=== PATIENT | male | born 1950 | race Caucasian/White ===

== ENCOUNTER → 2022-07-05 23:00 | Outpatient (CLI) | payer MEDICARE, SELFPAY ==
[2022-07-05 20:04] LABS: Alanine Aminotransferase 44 U/L (12-78); Albumin Level 4.2 g/dl (3.5-5.0); Albumin/Globulin Ratio 1.4 (1.1-1.8); Alkaline Phosphatase 87 U/L (38-126); Aspartate Amino Transferase 37 U/L (17-59); Basophils # 0.1 K/mm3 (0-0.2); Basophils % 0.4 % (0.1-2.0); Bilirubin,Total 0.7 mg/dl (0.2-1.3); Blood Urea Nitrogen 26 mg/dl (9-20); Calcium 9.1 mg/dl (8.4-10.2); Carbon Dioxide 28 mmol/L (22.0-30.0); Chloride 104 mmol/L (98-107); Eosinophils # 0.1 K/mm3 (0.0-0.4); Eosinophils % 0.6 % (0.1-12.0); Estimated Glomerular Filt Rate 66 ml/min (>60); GFR (African American) 80 ML/MIN (>60); Globulin 3.1 g/dL (1.3-3.2); Glucose 123 mg/dl (74-100); Hematocrit 52.2 % (42.0-52.0); Lymphocytes # 1.4 K/mm3 (0.7-4.5); Lymphocytes % 7.6 % (10-50); Mean Corpuscular HGB Conc 32.5 g/dL (31.8-35.4); Mean Corpuscular Hemoglobin 28.1 pg (27.0-31.2); Mean Corpuscular Volume 86.4 fl (80-94); Mean Platelet Volume 8.1 fl (7.4-10.4); Monocytes # 0.8 K/mm3 (0.1-1.0); Monocytes % 4.5 % (1.7-9.3); Neutrophils # 15.8 K/mm3 (1.8-7.8); Neutrophils % 86.9 % (37.0-80.0); Platelet Count 288 K/mm3 (142-424); Red Blood Count 6.05 M/mm3 (4.60-6.20); Red Cell Distribution Width 15.6 % (11.5-17.5); Sodium 138 mmol/L (136-145); Total Protein,Serum 7.3 g/dl (6.3-8.2); White Blood Count 18.2 K/mm3 (4.8-10.8)
[2022-07-05 20:06] LABS: MANUAL DIFFERENTIAL MANUAL DIFFERENTIAL (MANUAL DIFF)
[2022-07-05 22:19] LABS: Burr Cells 1+; Eosinophils % 1 % (0-3); Lymphocytes % 21 % (10-50); Monocytes % 4 % (2-9); Neutrophils % 74 % (42-76); Platelet Estimate Normal; Total Cells Counted 100
[2022-07-05 22:20] LABS: Ovalocytes 1+; Tear Drop Cells 1+
== END ==
PROVIDERS: PCP Family Medicine; Visit Provider Family Medicine
DX: R30.0 Dysuria (principal)
CPT/HCPCS: 80053; 85007; 85025; 87086

== ENCOUNTER → 2022-09-16 15:00 | Outpatient (CLI) | payer MEDICARE, SELFPAY | PROVIDERS: PCP Family Medicine; Visit Provider Family Medicine | DX: R39.9 Unspecified symptoms and signs involving the genitourinary system (principal) | CPT/HCPCS: 87086 ==

== ENCOUNTER → 2023-02-14 12:00 | Outpatient (CLI) | payer MEDICARE, SELFPAY ==
[2023-02-14 19:44] LABS: Basophils % 0.3 % (0.1-2.0); Eosinophils # 0.2 K/mm3 (0.0-0.4); Eosinophils % 2.8 % (0.1-12.0); Hematocrit 45.2 % (42.0-52.0); Hemoglobin 14.3 g/dL (14.1-18.0); Lymphocytes # 0.7 K/mm3 (0.7-4.5); Lymphocytes % 9.6 % (10-50); Mean Corpuscular HGB Conc 31.6 g/dL (31.8-35.4); Mean Corpuscular Volume 85.6 fl (80-94); Mean Platelet Volume 8.6 fl (7.4-10.4); Monocytes # 0.5 K/mm3 (0.1-1.0); Monocytes % 7.6 % (1.7-9.3); Neutrophils # 5.6 K/mm3 (1.8-7.8); Neutrophils % 79.7 % (37.0-80.0); Platelet Count 195 K/mm3 (142-424); Red Blood Count 5.28 M/mm3 (4.60-6.20); Red Cell Distribution Width 14.7 % (11.5-17.5)
[2023-02-14 19:53] LABS: Alanine Aminotransferase 23 U/L (12-78); Albumin Level 3.5 g/dl (3.5-5.0); Albumin/Globulin Ratio 1.1 (1.1-1.8); Alkaline Phosphatase 85 U/L (38-126); Anion Gap 12.9 mEq/L (5-15); Aspartate Amino Transferase 37 U/L (17-59); Bilirubin,Total 0.4 mg/dl (0.2-1.3); Blood Urea Nitrogen 21 mg/dl (9-20); Calcium 8.9 mg/dl (8.4-10.2); Carbon Dioxide 30 mmol/L (22.0-30.0); Chloride 96 mmol/L (98-107); Estimated Glomerular Filt Rate 66 ml/min (>60); GFR (African American) 80 ML/MIN (>60); Globulin 3.2 g/dL (1.3-3.2); Glucose 108 mg/dl (74-100); Potassium 3.9 mmoL/L (3.5-5.1); Sodium 135 mmol/L (136-145); Total Protein,Serum 6.7 g/dl (6.3-8.2)
== END ==
PROVIDERS: PCP Family Medicine; Visit Provider Family Medicine
DX: R30.0 Dysuria (principal); M25.551 Pain in right hip; M25.552 Pain in left hip
CPT/HCPCS: 80053; 85025

== ENCOUNTER 2023-02-28 17:11 | Observation (INO) | payer MEDICARE, SELFPAY ==
[2023-02-28] VITALS (11 sets, daily range): BP systolic 99–149; BP diastolic 65–85; PULSE 66–88; RESP 18–21; TEMP 36.9–37.4; O2SAT 94–99; BMI 27.6; BMI 28.7
--- NOTE | 2023-02-28 17:55 | XR_ITS ---
PROCEDURE INFORMATION: Exam: XR Chest Exam date and time: 02/28/2023 6:31 PM Age: 72 years old Clinical indication: Shortness of breath; Additional info: SOA, rales TECHNIQUE: Imaging protocol: Radiologic exam of the chest. Views: 1 view. COMPARISON: No relevant prior studies available. FINDINGS: Lungs: Low lung volumes with diffuse bilateral reticular opacities. Pleural spaces: Normal No pleural effusion. No pneumothorax. Heart/Mediastinum: Normal. No cardiomegaly. Vasculature: Mildly tortuous atherosclerotic thoracic aorta. Bones/joints: Unremarkable. IMPRESSION: Lung volumes with diffuse bilateral pulmonary reticular opacities. Findings could be due to interstitial lung disease, hypersensitivity reaction, or atypical pneumonia.
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
--- NOTE | 2023-02-28 18:03 | ECG_ITS ---
APPROVED REPORT Exam: Resting ECG HR:68 bpm ECG Measurements Heart Rate 68 AXES VA 201 P -1 QRSd 102 QRS -11 QT 389 T 30 QTc 406 Conclusion SINUS RHYTHM POSSIBLE RIGHT VENTRICULAR CONDUCTION DELAY [RSR (QR) IN V1/V2] BORDERLINE ECG UNCONFIRMED REPORT Electronically signed by : Huey Ewing MD 03/01/2023 08:48:17
[2023-02-28 18:09] LABS: Chloride 102 mmol/L (98-107)
[2023-02-28 18:10] LABS: Potassium 4.4 mmoL/L (3.5-5.1); Sodium 138 mmol/L (136-145)
[2023-02-28 18:12] LABS: Alanine Aminotransferase 23 U/L (12-78); Aspartate Amino Transferase 31 U/L (17-59); Blood Urea Nitrogen 17 mg/dl (9-20); Creatinine Clearance Estimated 77 mL/min (50-200); Estimated Glomerular Filt Rate 60 ml/min (>60); GFR (African American) 72 ML/MIN (>60)
[2023-02-28 18:13] LABS: Albumin Level 3.3 g/dl (3.5-5.0); Albumin/Globulin Ratio 0.9 (1.1-1.8); Alkaline Phosphatase 99 U/L (38-126); Anion Gap 9.4 mEq/L (5-15); Basophils % 0.3 % (0.1-2.0); Bilirubin,Total 0.4 mg/dl (0.2-1.3); Calcium 8.6 mg/dl (8.4-10.2); Carbon Dioxide 31 mmol/L (22.0-30.0); Eosinophils # 0.2 K/mm3 (0.0-0.4); Eosinophils % 3.1 % (0.1-12.0); Globulin 3.5 g/dL (1.3-3.2); Glucose 104 mg/dl (74-100); Hematocrit 42.2 % (42.0-52.0); Hemoglobin 13.3 g/dL (14.1-18.0); Lymphocytes # 1.5 K/mm3 (0.7-4.5); Lymphocytes % 21.5 % (10-50); Mean Corpuscular HGB Conc 31.5 g/dL (31.8-35.4); Mean Corpuscular Hemoglobin 27.1 pg (27.0-31.2); Mean Corpuscular Volume 86.2 fl (80-94); Mean Platelet Volume 7.3 fl (7.4-10.4); Monocytes # 0.5 K/mm3 (0.1-1.0); Monocytes % 7.1 % (1.7-9.3); Neutrophils # 4.8 K/mm3 (1.8-7.8); Platelet Count 224 K/mm3 (142-424); Red Cell Distribution Width 15.2 % (11.5-17.5); Total Protein,Serum 6.8 g/dl (6.3-8.2)
[2023-02-28 18:20] LABS: D-Dimer 1.43 ug/mL (0.0-0.5)
[2023-02-28 18:20] LABS: VBG Base Excess 1.4 mmol/L (-2.4-2.3); VBG HCO3 26.5 mmol/L (23-30); VBG Oxygen Saturation 95.1 % (50-70); VBG PCO2 45.7 mmol/L (35-51); VBG PH 7.38 mmol/L (7.31-7.41); VBG PO2 71.5 mmol/L (28-40); VBG Total CO2 27.9 mmol/L (23-27)
[2023-02-28 18:22] LABS: NT Pro Brain Natriuretic Pep. 628 pg/mL (0-125)
[2023-02-28 18:37] LABS: Troponin I < 0.01 ng/ml (0.00-0.034)
--- NOTE | 2023-02-28 18:37 | CT_ITS ---
PROCEDURE INFORMATION: Exam: CTA Chest With Contrast Exam date and time: 02/28/2023 7:04 PM Age: 72 years old Clinical indication: Abnormal findings; Abnormal diagnostic tests; Elevated d-dimer; Additional info: Elevated dimer, high pretest probability, SOA TECHNIQUE: Imaging protocol: Computed tomographic angiography of the chest with contrast. Exam focused on the arteries. 3D rendering (Not supervised by radiologist): MIP and/or 3D reconstructed images were created by the technologist. Radiation optimization: All CT scans at this facility use at least one of these dose optimization techniques: automated exposure control; mA and/or kV adjustment per patient size (includes targeted exams where dose is matched to clinical indication); or iterative reconstruction. Contrast material: ISOVUE 370; Contrast volume: 70 ml; Contrast route: INTRAVENOUS (IV); REPORTING DATA: Count of CT and Cardiac NM exams in prior 12 months: This patient has received 0 known CTs and 0 known cardiac nuclear medicine studies in the 12 months prior to the current study. COMPARISON: CR XR CHEST PORTABLE 02/28/2023 6:31 PM FINDINGS: Limitations: Respiratory motion artifact could obscure small segmental or subsegmental emboli. Pulmonary arteries: Normal. No pulmonary emboli. Aorta: Unremarkable. No aortic aneurysm. No aortic dissection. Other arteries: Moderate atherosclerotic disease without aneurysm. New moderate/severe coronary artery calcification. Lungs: Pulmonary findings are degraded by respiratory motion. Diffuse bilateral reticular opacities in the lungs with areas of traction bronchiectasis. Mild emphysema. Pleural spaces: Unremarkable. No pneumothorax. No pleural effusion. Heart: Unremarkable. No cardiomegaly. No pericardial effusion. Lymph nodes: Scattered subcentimeter mediastinal hilar lymph nodes are probably reactive. Punctate calcified left hilar lymph nodes. Gallbladder and bile ducts: Status post cholecystectomy. Kidneys and ureters: Partially visualized 1.6 cm left renal cyst. Bones/joints: Healing right lateral 5th rib and 9th rib fractures. Mild thoracic spine degenerative changes. Soft tissues: Unremarkable. IMPRESSION: 1. Respiratory motion artifact could obscure small segmental or subsegmental pulmonary emboli. Otherwise no evidence of a pulmonary embolism. 2. Motion artifact degrades images of the lungs. There are diffuse bilateral pulmonary reticular opacities with areas of traction bronchiectasis consistent with pulmonary fibrosis. 3. Moderate/severe coronary artery calcified plaque. 4. Healing right lateral 5th and 9th rib fractures. COMMENTS: 1. Consistent with the [employer]'s Incidental Findings Committee white paper (J Am Angie Radiol 2018): Any incidental renal lesion less than 1 cm or classified as too small to characterize, or any incidental cystic renal lesion characterized as simple-appearing, is likely benign. No follow-up imaging is recommended for these lesions per consensus recommendations based on imaging criteria. 2. In the absence of a history or active diagnosis of lung cancer, it is recommended that this patient with emphysema be evaluated for enrollment in a low dose CT lung cancer screening program.
--- NOTE | 2023-02-28 19:14 | PC.NURSE ---
Rounded on patient; call light within reach of patient
--- NOTE | 2023-02-28 20:10 | PC.NURSE ---
paged Dr. Zuleta for possible admission
--- NOTE | 2023-02-28 20:21 | PC.NURSE ---
notified house about admission to Dr. Zuleta
--- NOTE | 2023-02-28 21:03 | PC.NURSE ---
report called to Victoria MANNING accepting nurse for admission.
--- NOTE | 2023-02-28 21:09 | PC.NURSE ---
Rounded on patient; nothing needed at this time. Call light within reach of patient
[2023-02-28 21:15] LABS: Troponin I < 0.01 ng/ml (0.00-0.034)
--- NOTE | 2023-02-28 21:56 | PC.NURSE ---
Patient arrived to floor via stretcher at 21:19.
[2023-02-28 22:38] LABS: Coronavirus 19, PCR Not Detected (NotDetected); Influenza A, PCR Not Detected (NotDetected); Influenza B, PCR Not Detected (NotDetected)
[2023-02-28 22:39] LABS: Troponin I < 0.01 ng/ml (0.00-0.034)
[2023-03-01] VITALS (9 sets, daily range): BP systolic 141–166; BP diastolic 90–95; PULSE 70–110; RESP 17–20; TEMP 36.3–36.7; O2SAT 93–95
[2023-03-01 01:03] LABS: Troponin I < 0.01 ng/ml (0.00-0.034)
--- NOTE | 2023-03-01 01:42 | PC.WOUNDNOTE ---
stage 2 to coccyx.
--- NOTE | 2023-03-01 05:47 | PC.NURSE ---
pt admitted for pul htn. pt on room air, nsr on monitor. wheezing and rhonchi noted. contacted dr cowart, new order received for guiafenesin and solumedrol and duonebs prn. unable to contact daughter x2 attempts to obtain home medication list
[2023-03-01 06:35] LABS: Chloride 100 mmol/L (98-107); Potassium 4.7 mmoL/L (3.5-5.1); Sodium 138 mmol/L (136-145)
[2023-03-01 06:37] LABS: Blood Urea Nitrogen 15 mg/dl (9-20); Creatinine Clearance Estimated 80 mL/min (50-200); Estimated Glomerular Filt Rate 60 ml/min (>60); GFR (African American) 72 ML/MIN (>60)
[2023-03-01 06:38] LABS: Alanine Aminotransferase 25 U/L (12-78); Albumin Level 3.5 g/dl (3.5-5.0); Alkaline Phosphatase 90 U/L (38-126); Anion Gap 10.7 mEq/L (5-15); Aspartate Amino Transferase 31 U/L (17-59); Bilirubin,Total 0.4 mg/dl (0.2-1.3); Carbon Dioxide 32 mmol/L (22.0-30.0); Globulin 3.5 g/dL (1.3-3.2); Glucose 144 mg/dl (74-100)
[2023-03-01 06:50] LABS: Basophils % 0.1 % (0.1-2.0); Hematocrit 41.5 % (42.0-52.0); Hemoglobin 13.9 g/dL (14.1-18.0); Lymphocytes # 0.5 K/mm3 (0.7-4.5); Lymphocytes % 12.6 % (10-50); Mean Corpuscular HGB Conc 33.5 g/dL (31.8-35.4); Mean Corpuscular Hemoglobin 28.4 pg (27.0-31.2); Mean Corpuscular Volume 84.7 fl (80-94); Mean Platelet Volume 7.7 fl (7.4-10.4); Monocytes # 0.1 K/mm3 (0.1-1.0); Monocytes % 1.9 % (1.7-9.3); Neutrophils # 3.7 K/mm3 (1.8-7.8); Neutrophils % 85.4 % (37.0-80.0); Platelet Count 233 K/mm3 (142-424); Red Cell Distribution Width 16.4 % (11.5-17.5); White Blood Count 4.3 K/mm3 (4.8-10.8)
[2023-03-01 06:58] LABS: MANUAL DIFFERENTIAL MANUAL DIFFERENTIAL (MANUAL DIFF)
--- NOTE | 2023-03-01 07:28 | HMH.PHAINT1 ---
Pharmacy Intervention Comments: MEDICATION RECONCILIATION COMPLETED ON PATIENT USING EXTERNAL FILL HISTORY FROM PHARMACY. -NICK GARRISON, VIRAJD
[2023-03-01 07:47] LABS: Lymphocytes % 16 % (10-50); Monocytes % 3 % (2-9); Neutrophils % 81 % (42-76); Platelet Estimate Normal; RBC Morphology Normal; Total Cells Counted 100
--- NOTE | 2023-03-01 08:36 | EXP.HP ---
History of Present Illness *Admission Date: 02/28/23 *Reason for visit:: SOA, right hip pain *History of present illness: Mr. Nguyen is a 72-year-old male who was recently hospitalized at [place] February 17 through February 23, 2023 with bilateral lower lobe pneumonia. He had acute respiratory failure with hypoxia. Apparently his right hip was dislocated on that admission following hip replacement and he is currently wearing a hip brace. His family could not get help or placement during that hospitalization. After he was discharged, he had a fall and was hospitalized on 02/25 at [facility]. He followed up with Dr. Zuleta in the office yesterday in [place]. He still had some shortness of breath and his oxygen saturations in the office varied from 87% to 95%. Dr. Zuleta sent him to the emergency room for evaluation, possible admission, pulmonary consultation, and possible placement. [facility] Disclaimer: The information contained in this section may have been updated after the patient was seen, as this information can be updated by other users. Medical History (Updated 03/01/23 @ 08:51 by SELWYN Camacho) Back pain Benign prostatic hyperplasia COPD (chronic obstructive pulmonary disease) with emphysema Dizziness Dysuria Hip pain Hyperlipemia Hypertension Low back pain Pulmonary fibrosis Right foot sprain Seborrhea Situational depression Status post replacement of hip joint Tobacco abuse Surgical History (Updated 03/01/23 @ 08:39 by SELWYN Camacho) History of hand surgery History of prostate surgery History of right hip replacement Family History Hyperlipidemia Cancer Hypertension Social History Smoking Status: Current every day smoker alcohol intake: never substance use type: denies use current occupational status: retired Travel in the last 8 weeks: None household members: spouse housing: house Review of Systems Constitutional Constitutional: Denies chills, Reports fatigue, Denies fever(s), Reports frequent falls, Denies headache(s) and Reports malaise Eyes Eyes: Denies blurry vision and Denies diplopia ENT Ears, Nose, Mouth, and Throat: Denies headache(s), Reports nasal congestion and Denies sore throat *Cardiovascular Cardiovascular: Denies chest pain, Reports dyspnea and Denies leg edema *Respiratory Respiratory: Reports chest congestion, Reports cough, Reports dyspnea and Reports wheezing *Gastrointestinal Gastrointestinal: Denies abdominal pain, Denies loose stools, Denies nausea and Denies vomiting *Genitourinary Genitourinary: Denies difficulty urinating and Denies dysuria *Musculoskeletal Musculoskeletal: Reports arthralgias (right hip), Denies back pain and Reports muscle weakness *Neurologic Neurologic: Reports frequent falls and Denies headache(s) Endocrine Endocrine: Reports fatigue Allergic/Immunologic Allergic/Immunologic: Reports wheezing Meds Home Medications and Allergies Home Medications Medication Instructions Recorded Confirmed Type albuterol sulfate 90 mcg/actuation 2 puff inhalation Q6HP PRN 03/01/23 03/01/23 History aerosol inhaler Shortness Of Breath atorvastatin 40 mg tablet 40 mg PO DAILY Cholesterol 03/01/23 03/01/23 History celecoxib 200 mg capsule 200 mg PO DAILY Pain 03/01/23 03/01/23 History clindamycin HCl 300 mg capsule 300 mg PO QID Infection 03/01/23 03/01/23 History docusate sodium 100 mg capsule 100 mg PO BID Constipation 03/01/23 03/01/23 History escitalopram oxalate 20 mg tablet 20 mg PO DAILY Mood 03/01/23 03/01/23 History esomeprazole magnesium 40 mg 40 mg PO DAILY Acid Reflux 03/01/23 03/01/23 History capsule,delayed release fluticasone fur. 100 mcg-umeclid 1 inh inhalation DAILY Breathing 03/01/23 03/01/23 History 62.5 mcg-vilant 25 mcg Problems inhalat.powder (Trelegy Ellipta) gabapentin 600 mg tablet 600 mg PO TID Pa
--- NOTE | 2023-03-01 09:54 | HMH.OTEV ---
OT Inpatient Evaluation Rehab OT IP Evaluation Start: 03/01/23 07:52 Freq: ONCE Status: Active Protocol: Document 03/01/23 09:49 TANISHABRODIE (Rec: 03/01/23 09:54 DIGNAEV [id number]) Rehab OT IP Assessment Subjective History Mr. Nguyen is a 72-year-old male who was recently hospitalized at [place] February 17 through February 23, 2023 with bilateral lower lobe pneumonia . He had acute respiratory failure with hypoxia. Apparently his right hip was dislocated on that admission following hip replacement and he is currently wearing a hip brace. His family could not get help or placement during that hospitalization. After he was discharged, he had a fall and was hospitalized on at [place]. He followed up with Dr. Zuleta in the office yesterday in [place]. He still had some shortness of breath and his oxygen saturations in the office varied from 87% to 95%. Dr. Zuleta sent him to the emergency room for evaluation, possible admission, pulmonary consultation, and possible placement. Patient lives with dtr and grandsons in 1 story home with ramp to enter. Patient uses a RW to ambulate within the home. hx of falling. Requires assistance for ADLs and fx'l mobility from family. Objective Patient Orientation Person,Place,Name,Age,Birthday ,Year Upper Extremity Gross ROM WFL Bed Mobility bed mobility - supine/sit Assist Level Moderate x 2 (50% assist) Transfer Training Sit/Stand Transfer Assist Level Moderate x 2 (50% assist) Chair Transfer Ability Moderate x 2 (50% assist) Chair Transfer Technique Sit to/from Ambulatory Chair Transfer Assistive Devices Rolling Walker Lower Body Dressing Ability Unable/Dependant Rehab OT IP prob,goals,plan
--- NOTE | 2023-03-01 10:12 | EXP.PULM.CON ---
History of Present Illness History of present illness: Mr. Nguyen is a 72-year-old male current smoker greater than [id number] smoking history recently had episode of pneumonia status post treatment completion, hip fracture undergoing therapy was found to be hypoxic during his primary care visit and was eventually admitted to the hospital for further evaluation and management along with possible placement. [facility] Disclaimer: The information contained in this section may have been updated after the patient was seen, as this information can be updated by other users. Medical History (Updated 03/01/23 @ 10:16 by Franci Mott MD) Back pain Benign prostatic hyperplasia COPD (chronic obstructive pulmonary disease) with emphysema Dizziness Dyspnea on exertion Dysuria Hip pain Hyperlipemia Hypertension Low back pain Pulmonary fibrosis Right foot sprain Seborrhea Situational depression Smoking greater than 30 pack years Status post replacement of hip joint Tobacco abuse Surgical History (Updated 03/01/23 @ 08:39 by SELWYN Camacho) History of hand surgery History of prostate surgery History of right hip replacement Family History Hyperlipidemia Cancer Hypertension Social History Smoking Status: Current every day smoker alcohol intake: never substance use type: denies use current occupational status: retired Travel in the last 8 weeks: None household members: spouse housing: house Review of Systems Constitutional Constitutional: Reports fatigue, Reports frequent falls and Denies headache(s) Eyes Eyes: Denies eye discharge, Denies dry eyes, Denies irritation and Denies itchy eyes ENT Ears, Nose, Mouth, and Throat: Denies headache(s), Denies lip swelling and Denies throat swelling *Cardiovascular Cardiovascular: Reports dyspnea and Reports dyspnea on exertion *Respiratory Respiratory: Reports chest congestion, Reports cough, Reports dyspnea, Reports dyspnea on exertion, Denies excessive phlegm production and Reports wheezing *Gastrointestinal Gastrointestinal: Denies abdominal pain, Denies belching and Denies cramping *Musculoskeletal Musculoskeletal: Reports back pain, Reports myalgias and Reports other (No small joint swelling or Pain) Comments: Hip pain *Neurologic Neurologic: Reports frequent falls and Denies headache(s) Psychiatric Psychiatric: Denies homicidal ideation and Denies suicidal ideation Endocrine Endocrine: Reports fatigue and Denies heat intolerance Hematologic/Lymphatic Hematologic/Lymphatic: Denies easy bleeding and Denies lymphadenopathy Allergic/Immunologic Allergic/Immunologic: Denies itchy eyes, Denies lip swelling, Denies throat swelling and Reports wheezing Pulmonology Exam Inpatient Vital signs and Labs for Last 24 Hours: Temp Pulse Resp BP Pulse Ox O2 Del Method 97.9 F 85 18 155/90 H 95 Room Air 03/01/23 07:20 03/01/23 07:20 03/01/23 07:20 03/01/23 07:20 03/01/23 07:20 03/01/23 09:00 Laboratory Results - last 24 hr 02/28/23 17:25: WBC 7.0, RBC 4.90, Hgb 13.3 L, Hct 42.2, MCV 86.2, MCH 27.1, MCHC 31.5 L, RDW 15.2, Plt Count 224, MPV 7.3 L, Neut % (Auto) 68.0, Lymph % (Auto) 21.5, Hudson % (Auto) 7.1, Eos % (Auto) 3.1, Baso % (Auto) 0.3, Neut # (Auto) 4.8, Lymph # (Auto) 1.5, Hudson # (Auto) 0.5, Eos # (Auto) 0.2, Baso # (Auto) 0.0, D-Dimer 1.43 H, Sodium 138, Potassium 4.4, Chloride 102, Carbon Dioxide 31 H, Anion Gap 9.4, BUN 17, Creatinine 1.20, Estimated Creat Clear 77, Estimated GFR 60, Est GFR ( Amer) 72, Glucose 104 H, Calcium 8.6, Total Bilirubin 0.4, AST 31, ALT 23, Alkaline Phosphatase 99, Troponin I < 0.01, NT-Pro-B Natriuret Pep 628 H, Total Protein 6.8, Albumin 3.3 L, Globulin 3.5 H, Albumin/Globulin Ratio 0.9 L 02/28/23 18:20: VBG pH 7.38, VBG pCO2 45.7, VBG pO2 71.5 H, VBG HCO3 26.5, VBG Total CO2 27.9 H, VBG O2 Saturation 95.1 H, VBG Base
--- NOTE | 2023-03-01 10:17 | HMH.PTEV ---
Physical Therapy Evaluation Rehab PT IP Evaluation Start: 03/01/23 07:52 Freq: ONCE Status: Active Protocol: Document 03/01/23 10:05 PHOMICHELLE (Rec: 03/01/23 10:17 PHORNE [id number]) Subjective/History History History 72 yowm adm to [facility] with Pulmonary HTN. He has hx of COPD, HTN, HLD, R DIEUDONNE with post-op dislocation requiring a hip brace. He reports he lives with family, ramp to enter the home and he uses a RW to ambulate short distances at baseline. Subjective Subjective He reports feeling tired this am, because I didn't get any sleep last night. New diagnosis of cancer in past 12 No months? Rehab PT IP Eval Objective Appearance Patient Behavior Appropriate Patient Orientation Person,Place,Time Difficulty following instructions none Speech Pattern Clear Ambulation Patient Able to Ambulate Yes Ambulation Observation IP General Gait Pattern Observation Antalgic Gait,Ataxic Gait, Shuffling Step,Decrease Weight Bear (R),Decrease Stride Lngth (R),Decrease Stride Lngth (L) Ambulation Distance (feet) 3 Ambulation Assistive Device Rolling Walker Ambulation Ability Moderate x 1 (50% assist) Balance Ability to Arise Unable Sitting Balance Leans or slides in chair Standing Balance Unsteady Dynamic Sitting Balance Ability Fair Dynamic Standing Balance Ability Poor Transfers Bed Transfer Ability Moderate x 1 (50% assist) Chair Transfer Ability Moderate x 1 (50% assist) Sit to Stand Bed Transfer Ability Moderate x 1 (50% assist) Sit to Stand Chair Transfer Ability Moderate x 1 (50% assist) Rehab PT IP prob,goals,plan Problems Date of Evaluation: 03/01/23 PT IP Problems Bed Mobility,Transfers,Gait Rehab Potential Rehab Potential Good Plan PT Intervention Plan Bed Mobility,Transfers,Gait, Therapeutic Exercise PT Plan Frequency Daily Duration LOS Discharge Goals Bed Transfer Ability Minimal x 2 (25% assist) Sit to Stand Chair Transfer Ability Minimal x 2 (25% assist) Ambulation Assistive Device Rolling Walker Ambulation Distance (feet) 10 Discharge Plan PT Discharge Plan Pt is currently most appropriate for rehab
--- NOTE | 2023-03-01 10:47 | SW/DCPLANNER ---
Addendum entered by Kendra Painter 03/02/23 10:01: Per Aida CAPELLANTy patient is approved for SNF level of care. Patient will discharge today. Addendum entered by Kendra Painter 03/01/23 13:02: Aida dan/ [facility] stated that she is starting a precert on this patient. Original Note: I spoke w/ patient regarding plans once medically stable for discharge. Patient stated that he resides at home w/ his daughter and grandchildren. PT/OT evaluated patient and recommended SNF level of care at time of discharge. I discussed placement w/ patient and he is agreeable at this time. I discussed several SNF facilities and he is agreeable to [facility]. Aida dan/ [facility] stated that she does have male beds available. Patient also requested that I call and discuss situation w/ his daughter. I called and spoke w/ daughter (Alma): she is agreeable to discharge plans at [facility]. Patient information has been faxed to Aida CAPELLANTy: I will continue to follow up. Patient could be medically stable for discharge tomorrow pending no setbacks.
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
[2023-03-02] VITALS: BP 166/88; PULSE 100; PULSE 85; RESP 17; TEMP 36.6; O2SAT 96
[2023-03-02 04:00] VITALS: BP 169/70; PULSE 100; PULSE 66; RESP 17; TEMP 36.6; O2SAT 96; BMI 28.7
--- NOTE | 2023-03-02 05:27 | PC.NURSE ---
PATIENT VERY NEEDY. USES CALL [facility] SOMETIMES BUT MOSTLY YELLS OUT FOR THINGS HE WANTS. VSS/AFEBRILE. NO RESP DISTRESS. SOME WHEEZES NOTED BILAT AND CRACLES IN BILAT BASES. DRY COUGH NOTED. BRACE TO RIGHT UPPER LEG IN USE.
[2023-03-02 06:20] VITALS: O2SAT 92
[2023-03-02 07:39] VITALS: BP 165/115; PULSE 84; RESP 18; TEMP 36.7; O2SAT 94
--- NOTE | 2023-03-02 08:44 | EXP.ACUTE.PN ---
Subjective *Date: 03/02/23 *Time: 08:44 Interval history: Patient states he is feeling a little better today. Hip pain has improved. He was able to work with PT. His SOA is also better and he has less wheezing. He says he is tired today. He only slept off and on last night. Medical Exam Vital signs and Labs for Last 24 Hours: Vital Signs Temp Pulse Pulse Resp BP Pulse Ox O2 Del Method 03/02/23 08:00 Room Air 03/02/23 07:39 98.1 F 84 18 165/115 H 94 L Room Air 03/02/23 06:38 Room Air 03/02/23 06:20 92 L Room Air 03/02/23 05:00 Room Air 03/02/23 04:00 100 H 03/02/23 04:00 98 F 66 17 169/70 H 96 Room Air 03/02/23 03:00 Room Air 03/02/23 00:00 85 03/02/23 01:00 Room Air 03/02/23 00:00 98 F 100 H 17 166/88 H 96 Room Air 03/01/23 23:00 Room Air 03/01/23 20:00 110 H 03/01/23 21:00 Room Air 03/01/23 20:00 94 L Room Air 03/01/23 20:00 97.5 F L 102 H 17 165/94 H 94 L Room Air 03/01/23 18:29 Room Air 03/01/23 17:00 Room Air 03/01/23 16:00 90 03/01/23 15:32 98.1 F 96 H 18 162/92 H 93 L Room Air 03/01/23 15:00 Room Air 03/01/23 12:00 110 H 03/01/23 13:00 Room Air 03/01/23 11:20 97.8 F 88 18 166/95 H 94 L Room Air 03/01/23 10:49 Room Air 03/01/23 09:00 Room Air Intake and Output 03/01/23 03/02/23 03/02/23 19:59 03:59 11:59 Intake Total 480 / 960 480 / 960 0 / 960 Output Total 1450 / 2250 800 / 2250 0 / 2250 Balance -970 / -1290 -320 / -1290 0 / -1290 Intake: Intake, Oral Amount 480 / 960 480 / 960 0 / 960 Output: Output, Urine Amount 1450 / 2250 800 / 2250 0 / 2250 Other: Number of Unmeasured Voids 1 2 0 Weight 223 lb 14.388 oz Patient Weight 03/02/23 11:59 Weight 223 lb 14.388 oz I & O for Labs for Last 24 Hours: Intake & Output 02/27/23 02/28/23 03/01/23 03/02/23 11:59 11:59 11:59 11:59 Intake Total 480 / 480 960 / 960 Output Total 2700 / 2700 2250 / 2250 Balance -2220 / -2220 -1290 / -1290 Weight 223 lb 14.4 oz 223 lb 14.388 oz Constitutional: Present no acute distress Respiratory: Present wheezes (improved) and crackles (bibasilar) Cardiac: Present Reg Rate and Rhythm GI: Present soft; Absent distention, tenderness or guarding Extremities: Absent tenderness or edema Skin: Present intact Neuro: Present alert, awake and oriented x 3 Assessment and Plan *Assessment and plan (1) Pulmonary HTN: Status: Acute Category: Medical Code(s): I27.20 - Pulmonary hypertension, unspecified (2) Pulmonary fibrosis: Problem Comment: Family seems exasperated by the patients situation. States he will not commit to rehab. Status: Acute Category: Medical Code(s): J84.10 - Pulmonary fibrosis, unspecified (3) Hip pain: Status: Acute Qualifiers: Laterality: bilateral Qualified Code(s): M25.551 - Pain in right hip; M25.552 - Pain in left hip Category: Medical Code(s): M25.559 - Pain in unspecified hip (4) Tobacco abuse: Status: Chronic Category: Medical Code(s): Z72.0 - Tobacco use (5) Status post replacement of hip joint: Status: Chronic Category: Medical Code(s): Z96.649 - Presence of unspecified artificial hip joint (6) Benign prostatic hyperplasia: Status: Chronic Category: Medical Code(s): N40.0 - Benign prostatic hyperplasia without lower urinary tract symptoms (7) COPD (chronic obstructive pulmonary disease) with emphysema: Status: Chronic Category: Medical Code(s): J43.9 - Emphysema, unspecified (8) Situational depression: Problem Comment: Continue citalopram. Continue hydroxyzine. Status: Chronic Category: Medical Code(s): F43.21 - Adjustment disorder with depressed mood Plan Pulmonology saw the patient and ini
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
--- NOTE | 2023-03-02 10:34 | EXP.DC.SUM ---
General Admission date:: 02/28/23 Discharge date: 03/02/23 HPI HPI HPI: Mr. Nguyen is a 72-year-old male who was recently hospitalized at [facility] February 17 through February 23, 2023 with bilateral lower lobe pneumonia. He had acute respiratory failure with hypoxia. Apparently his right hip was dislocated on that admission following hip replacement and he is currently wearing a hip brace. His family could not get help or placement during that hospitalization. After he was discharged, he had a fall and was hospitalized on 02/25 at [facility]. He followed up with Dr. Zuleta in the office yesterday in [place]. He still had some shortness of breath and his oxygen saturations in the office varied from 87% to 95%. Dr. Zuleta sent him to the emergency room for evaluation, possible admission, pulmonary consultation, and possible placement. Hospital Course Hospital Course Hospital Course: The patient's chest x-ray showed lung volumes with diffuse bilateral pulmonary reticular opacities. He had a CTA to rule out a PE. His CTA showed diffuse bilateral pulmonary reticular opacities with areas of traction bronchiectasis consistent with pulmonary fibrosis. There was also moderate/severe coronary artery calcified plaque and healing right lateral fifth and ninth rib fractures. There was no evidence of PE. The patient was admitted and physical therapy and Occupational Therapy were consulted as was pulmonology. He was started on DuoNebs and steroids. He was able to work with therapy and they felt he would need skilled placement once medically stable. By 03/02/2023, he was feeling better. His pain had improved as had his shortness of breath. He had less wheezing. The warehouse operations manager saw him and initiated a Trelegy inhaler as well as DuoNebs every 6 hours. He wanted to follow-up with the patient in 4 to 6 weeks in the pulmonology clinic with a full PFT and a 6-minute walk test. A bed was found for him by care management at [facility] for rehab. He was stable to be discharged and will need outpatient follow-up with pulmonology at [facility]. Exam Data for Last 24 hours Vital signs and Labs for Last 24 Hours: Temp Pulse Resp BP Pulse Ox O2 Del Method 98.1 F 84 18 165/115 H 94 L Room Air 03/02/23 07:39 03/02/23 07:39 03/02/23 07:39 03/02/23 07:39 03/02/23 07:39 03/02/23 10:30 I & O for Last 24 hours: Intake & Output 02/27/23 02/28/23 03/01/23 03/02/23 11:59 11:59 11:59 11:59 Intake Total 480 / 480 960 / 960 Output Total 2700 / 2700 2250 / 2250 Balance -2220 / -2220 -1290 / -1290 Weight 223 lb 14.4 oz 223 lb 14.388 oz Narrative: Constitutional Constitutional: no acute distress *Routine HEENT Exam Head: Present normocephalic and atraumatic Eye: Present EOMI and PERRL ENT: Present mucous membranes moist *Routine Neck Exam Neck: Present supple and full ROM *Routine Respiratory Exam Respiratory: Present rhonchi, wheezes and crackles (bibasilar) *Routine Cardiovascular Exam Cardiovascular: Present RRR *Routine Abdominal Exam Abdominal: Present soft and normoactive bowel sounds; Absent tenderness *Routine Rectal Exam Rectal:: deferred *Routine Genitalia Exam Genitalia:: deferred *Routine Extremities Exam Extremities: Absent cyanosis, clubbing or edema Comments: right hip with brace in place *Routine Skin Exam Skin: Present wounds (on the right side of the face from recent fall); Absent erythema *Routine Neurological Exam Neurological: Present alert and oriented X3 DS: Diagnosis Discharge Diagnosis (1) Pulmonary fibrosis: Status: Acute Code(s): J84.10 - Pulmonary fibrosis, unspecified Problem details: Family seems exasperated by the patients situation. States he will not commit to rehab. (2) Smoking greater than 30 pack years: Status: Acute Code(s): F17.210 - Nicotine dependence, cigarettes, uncomplicated (3) Dyspnea on exert
== END 2023-03-02 12:17 ==
LOC: ER 17:41 → 2ND 21:06
PROVIDERS: Admitting Provider Family Medicine; Emergency Provider Emergency Medicine; PCP Family Medicine; Visit Provider Family Medicine
DX: I27.20 Pulmonary hypertension, unspecified (principal); J84.10 Pulmonary fibrosis, unspecified; F17.210 Nicotine dependence, cigarettes, uncomplicated; R06.09 Other forms of dyspnea; M25.551 Pain in right hip; M25.552 Pain in left hip; Z96.649 Presence of unspecified artificial hip joint; N40.0 Benign prostatic hyperplasia without lower urinary tract symptoms; J43.9 Emphysema, unspecified; F43.21 Adjustment disorder with depressed mood; Z79.899 Other long term (current) drug therapy; R29.6 Repeated falls; J18.9 Pneumonia, unspecified organism
CPT/HCPCS: 36415; 71045; 71275; 80053; 82803; 83880; 84484; 85007; 85025; 85378; 87636; 93005; 94640; 97163; 97165; 97530; 99285; G0378; Q9967

== ENCOUNTER 2023-12-19 12:57 | Outpatient (CLI) | payer MEDICARE, SELFPAY ==
--- NOTE | 2023-12-19 13:01 | CT_ITS ---
FINAL REPORT TECHNIQUE: Axial imaging of the head was obtained without contrast. This study was performed with techniques to keep radiation doses as low as reasonably achievable, (ALARA). Individualized dose reduction techniques using automated exposure control or adjustment of mA and/or kV according to the patient's size were employed. CLINICAL HISTORY: cognitive decline COMPARISON: None FINDINGS: Mild atrophy and moderate chronic ischemic white matter changes are noted. No cortical edema is present. There is no mass or hemorrhage. Ventricles are normal. Bone windows show no skull fracture or obvious obstructive lesion. There is an air-fluid level in the right sphenoid sinus, consistent with sinusitis. IMPRESSION: No acute intracranial abnormality or obvious mass. Atrophy and chronic ischemic white matter changes as above. Air-fluid in the right sphenoid sinus, consistent with sinusitis. Reviewed, Interpreted and Dictated by Edgar Arreaga MD Transcribed by Britney Contreras Authenticated and [facility]
== END 2023-12-19 23:59 | disposition home or self-care (01) ==
LOC: RAD 12:58
PROVIDERS: PCP Family Medicine; Visit Provider Family Medicine
DX: R41.89 Other symptoms and signs involving cognitive functions and awareness (principal)
CPT/HCPCS: 70450

== ENCOUNTER 2024-03-03 11:59 | Emergency (ER) | payer MEDICARE, SELFPAY ==
[2024-03-03 11:59] VITALS: BP 157/107; PULSE 73; RESP 18; TEMP 36.8; O2SAT 95; BMI 27.2
[2024-03-03 12:05] VITALS: BP 166/106; PULSE 69; O2SAT 96
--- NOTE | 2024-03-03 12:37 | HMH.EDGENADL ---
Discharge Plan Disposition Patient Disposition: Xfer Other Condition: Good Prescriptions Prescriptions: New sulfamethoxazole-trimethoprim [Bactrim DS] 800-160 mg tablet 1 tab PO BID 14 Days Qty: 28 0RF No Action Debrox 6.5 % drops 5 drp otic (ear) DAILY 4 Days Qty: 15 0RF metoprolol succinate [Toprol XL] 100 mg tablet extended release 24 hr 100 mg PO DAILY Qty: 90 3RF venlafaxine [Effexor XR] 75 mg capsule,extended release 24hr 75 mg PO DAILY Qty: 90 3RF ipratropium-albuterol 0.5 mg-3 mg(2.5 mg base)/3 mL solution for nebulization 3 ml inhalation Q8H PRN (Reason: shortness of breath or wheezing) Qty: 180 10RF celecoxib [Celebrex] 200 mg capsule 200 mg PO DAILY Qty: 90 3RF tamsulosin 0.4 mg capsule See Rx Instructions .ROUTE .COMPLEX Qty: 90 1RF Dose Instruction: TAKE 1 CAPSULE BY MOUTH EVERYDAY AT BEDTIME Rx Instructions: TAKE 1 CAPSULE BY MOUTH EVERYDAY AT BEDTIME atorvastatin 40 mg tablet See Rx Instructions .ROUTE .COMPLEX Qty: 90 1RF Dose Instruction: TAKE 1 TABLET BY MOUTH EVERY DAY Rx Instructions: TAKE 1 TABLET BY MOUTH EVERY DAY aspirin 81 mg tablet,delayed release (DR/EC) 81 mg PO DAILY Qty: 30 2RF acetaminophen 500 mg tablet 500 mg PO Q6H PRN (Reason: pain) 30 Days Qty: 30 0RF losartan 100 mg tablet 100 mg PO DAILY Qty: 90 1RF levofloxacin 500 mg tablet 500 mg PO DAILY 10 Days Qty: 10 0RF lisinopril 20 mg tablet 20 mg PO DAILY Qty: 90 0RF hydrocodone-acetaminophen 7.5-325 mg tablet 1 tab PO Q6H PRN (Reason: pain) Qty: 120 0RF albuterol sulfate 90 mcg/actuation HFA aerosol inhaler 2 puff INHALATION Q6HP PRN (Reason: Shortness Of Breath) Patient Comments: INHALE 2-4 PUFFS INTO THE LUNGS EVERY 6 HOURS NEEDED FOR SHORTNESS OF BREATH. escitalopram oxalate 20 mg tablet 20 mg PO DAILY Trelegy Ellipta 100-62.5-25 mcg blister with device 1 inh inhalation DAILY Referrals Follow up/Referrals: Mehul Bahena MD [Primary Care Provider] - See instructions Christi Lynch DPM [Staff Physician] - See instructions Activity Restrictions/Add. Instructions Additional Instructions/Restrictions: You were evaluated in the emergency department today. 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 Follow-up closely with podiatry as an outpatient for reassessment. Also follow-up closely with your primary care provider. Return to the emergency department for new or worsening symptoms Clinical Impressions Clinical Impression: Paronychia Instructions Patient Instructions: DI for Paronychia Print Language Print Language: Italian Discharge ED Provider: Aida Menjivar General Adult HPI General Chief complaint: Skin/Abscess/Foreign Body Stated complaint: Toe pain Time Seen by Provider: 03/03/24 12:01 Mode of Arrival: EMS Source of Information: Patient and EMS Limitations: No Limitations Description of Symptoms (Recalled from ER Triage Doc. by RN): PT C/O PAIN AND REDNESS TO LEFT GREAT TOE X 3 DAYS History of Present Illness HPI narrative: This patient is a 73-year-old male with a history of COPD, hypertension, hyperlipidemia, and hip replacement presenting to the emergency department for evaluation with concern for redness and warmth of his left big toe. He states it is also hurting. He first noticed it a couple days ago. No fevers, chills, or other systemic symptoms. No numbness, tingling, or other concerns. Related Data Home Medications ?Medication ?Instructions ?Recorded ?Confirmed albuterol sulfate 90 mcg/actuation 2 puff inhalation Q6HP PRN 03/01/23 12/22/23 aerosol inhaler Shortness Of Breath escitalopram oxalate 20 mg tablet 20 mg PO DAILY Mood 03/01/23 12/22/23 fluticasone fur. 100 mcg-umeclid 1 inh inhalation DAILY Breathing 03/01/23 12/22/23 62.5 mcg-vilant 25 mcg Problems inhalat.powder (Trelegy Ellipta) Previous Rx's ?Medication ?Instructions ?Recorded atorvastatin 40 mg tablet See Rx Instructions .Route 03/17/23 .COMPLEX #90 tabs tamsulosin 0.4 mg capsule See Rx Instructions .Route 03/17/23 .COMPLEX #90 caps acetaminophen 500 mg tablet 500 mg PO Q6H PRN pain 30 days #30 06/16/23 tabs aspirin 81 mg tablet,delayed 81 mg PO DAILY #30 tabs 01/19/24 release ipratropium 0.5 mg-albuterol 3 mg 3 ml inhalation Q8H PRN shortness 10/09/23 (2.5 mg base)/3 mL nebulization of breath or wheezing #180 mL soln metoprolol succinate 100 mg 100 mg PO DAILY #90 tabs 10/09/23 tablet,extended release 24 hr (Toprol XL) venlafaxine 75 mg capsule,extended 75 mg PO DAILY #90 caps 10/09/23 release 24 hr (Effexor XR) losartan 100 mg tablet 100 mg PO DAILY HTN #90 tabs 10/12/23 celecoxib 200 mg capsule (Celebrex) 200 mg PO DAILY #90 caps 11/09/23 levofloxacin 500 mg tablet 500 mg PO DAILY sinusitis 10 days 12/21/23 #10 tabs carbamide peroxide 6.5 % ear drops 5 drp otic (ear) DAILY 4 days #15 12/22/23 (Debrox) mL lisinopril 20 mg tablet 20 mg PO DAILY #90 tabs 01/03/24 hydrocodone 7.5 mg-acetaminophen 1 tab PO Q6H PRN pain #120 tabs 02/06/24 325 mg tablet sulfamethoxazole 800 1 tab PO BID 14 days #28 tabs 03/03/24 mg-trimethoprim 160 mg tablet (Bactrim DS) Allergies Allergy/AdvReac Type Severity Reaction Status Date / Time oxycodone Allergy Severe itching Verified 12/22/23 14:07 Penicillins [PENICILLINS] Allergy Mild Verified 12/22/23 14:07 PFSH PFS Disclaimer: The information contained in this section may have been updated after the patient was seen, as this information can be updated by other users. Medical History Dyspnea on exertion Smoking greater than 30 pack years Seborrhea Pulmonary fibrosis Tobacco abuse Hip pain Status post replacement of hip joint Dizziness Dysuria Benign prostatic hyperplasia Right foot sprain Situational depression Low back pain COPD (chronic obstructive pulmonary disease) with emphysema Back pain Hyperlipemia Hypertension Surgical History History of right hip replacement History of hand surgery History of prostate surgery Family History Other Cancer Hyperlipidemia Hypertension Social History Smoking Status: Current every day smoker alcohol intake: never substance use type: denies use current occupational status: retired Travel in the last 8 weeks: None household members: spouse housing: house Other Medical History Have you received the Flu Vaccine for this season: No Have you received the Pneumonia Vaccine: No ROS Obtained: Yes All systems reviewed & no additional complaints except as documented Physical Exam General General appearance: alert and in no apparent distress Head Head exam: atraumatic and normocephalic Eye Eye exam: Present normal appearance, PERRL and EOMI ENT ENT exam: Present normal exam, normal oropharynx, mucous membranes moist and normal external ear exam Neck Neck exam: Present normal inspection, full ROM and trachea midline; Absent tenderness Chest Chest inspection: Present normal inspection and symmetric chest wall rise; Absent tenderness Respiratory Respiratory exam: Present normal lung sounds bilaterally; Absent respiratory distress, wheezes, stridor or accessory muscle use Cardiovascular Cardiovascular exam: Present regular rate and normal rhythm Abdominal Exam Abdominal exam: Present soft; Absent distention, tenderness or guarding Extremities Exam Extremities exam: Present full ROM and normal capillary refill; Absent tenderness or edema Expanded Lower Extremity Exam Left: Top foot image: 1. Localized erythema and warmth with no palpable fluctuance or obvious purulence. No red streaking up the extremity. Neurovascularly intact distally. Good palpable pulses. Back Exam Back exam: Present normal inspection and full ROM; Absent tenderness Neurological Exam Neurological exam: Present alert, oriented X3, CN II-XII intact and normal gait; Absent motor sensory deficit Psychiatric Psychiatric exam: Present normal affect and normal mood Skin Skin exam: Present warm and dry Medical Decision Making Medical Records Medical records reviewed: Yes I reviewed the patient's medical records. Screening: Per USPSTF and CDC recommendations, given the prevalence of disease in our region, it is our hospital?s policy to screen for HIV and viral Hepatitis for all patients aged 18 and over and those with ongoing risk factors. Sudhir Inquiry Pt receiving controlled substance: No Vital Signs: 03/03/24 11:59 03/03/24 12:05 03/03/24 12:45 Temperature 98.3 F 98.0 F Temperature Source Oral Oral Pulse Rate 69 70 Pulse Rate [Radial] 73 Respiratory Rate 18 18 Blood Pressure 166/106 H 132/87 Blood Pressure [Right Arm] 157/107 H Blood Pressure Mean 126 Blood Pressure Mean [Right Arm] 123 Blood Pressure Source Automatic Cuff Blood Pressure Source [Right Arm] Automatic Cuff Blood Pressure Position Sitting Blood Pressure Position [Right Arm] Sitting 02 Sat by Pulse Oximetry 95 96 Oxygen Delivery Method Room Air Room Air Room Air Lab Data Lab results reviewed: Yes I reviewed the patient's lab results. Orders (Tests/Meds): ED MEDICATIONS Discontinued Medications Generic Name Dose Route Start Last Admin Trade Name Bennett PRN Reason Stop Dose Admin Trimethoprim/Sulfamethoxazole 1 each 03/03/24 12:35 03/03/24 12:44 Sulfa/Trimethoprim 1 Tablet PO 03/03/24 12:36 1 each ONCE ONE Administration Medical Decision Narrative: In summary, this patient is a 73-year-old male presenting to the Emergency Department for evaluation of atraumatic left big toe redness, warmth, and pain. Differential diagnoses considered include but are not limited to paronychia, cellulitis, abscess, ingrown toenail. Ruling out the most morbid conditions drove assessment. On exam, patient is very well-appearing. He denies any systemic symptoms and is afebrile here. He has isolated erythema and warmth to his left big toe that I feel is most likely consistent with a developing paronychia. No appreciable fluctuance or purulence that is amenable to drainage at this time. Ultimately, I do not feel that labs or imaging are indicated as they would likely not exchange consultant. I feel the patient is appropriate for discharge home with prescription for antibiotics to treat this and close follow-up with podiatry. He was given oral Bactrim. Strict return precautions were given and he was discharged after all questions were answered. Critical Care Critical Care Time Critical Care Time: No
[2024-03-03] MEDS: SULFA/TRIMETHOPRIM 1 TABLET 1 EACH PO (12:44)
[2024-03-03 12:45] VITALS: BP 132/87; PULSE 70; RESP 18; TEMP 36.7; O2SAT 96
== END 2024-03-03 13:14 | disposition other institution (70) ==
PROVIDERS: Emergency Provider Emergency Medicine; PCP Family Medicine
DX: M79.675 Pain in left toe(s) (principal); L03.032 Cellulitis of left toe
CPT/HCPCS: 99283

== ENCOUNTER 2024-04-29 11:40 | Outpatient (CLI) | payer MEDICARE, SELFPAY ==
[2024-04-29 17:58] LABS: Basophils # 0.1 K/mm3 (0-0.2); Basophils % 0.9 % (0.1-2.0); Eosinophils # 0.3 K/mm3 (0.0-0.4); Hematocrit 49.8 % (42.0-52.0); Hemoglobin 16.5 g/dL (14.1-18.0); Lymphocytes # 1.4 K/mm3 (0.7-4.5); Lymphocytes % 18.9 % (10-50); Mean Corpuscular HGB Conc 33.1 g/dL (31.8-35.4); Mean Corpuscular Hemoglobin 28.7 pg (27.0-31.2); Mean Corpuscular Volume 86.8 fl (80-94); Mean Platelet Volume 8.6 fl (7.4-10.4); Monocytes # 0.5 K/mm3 (0.1-1.0); Monocytes % 7.2 % (1.7-9.3); Neutrophils # 5.2 K/mm3 (1.8-7.8); Platelet Count 230 K/mm3 (142-424); Red Blood Count 5.74 M/mm3 (4.60-6.20); Red Cell Distribution Width 14.9 % (11.5-17.5); White Blood Count 7.5 K/mm3 (4.8-10.8)
[2024-04-29 18:47] LABS: Albumin Level 3.9 g/dl (3.5-5.0); Chloride 100 mmol/L (98-107); Potassium 4.6 mmoL/L (3.5-5.1); Sodium 138 mmol/L (136-145)
[2024-04-29 18:50] LABS: Alanine Aminotransferase 19 U/L (12-78); Albumin/Globulin Ratio 1.2 (1.1-1.8); Alkaline Phosphatase 114 U/L (38-126); Anion Gap 9.6 mEq/L (5-15); Aspartate Amino Transferase 29 U/L (17-59); Bilirubin,Total 0.7 mg/dl (0.2-1.3); Blood Urea Nitrogen 27 mg/dl (9-20); Carbon Dioxide 33 mmol/L (22.0-30.0); Estimated Glomerular Filt Rate 59 ml/min (>60); GFR (African American) 72 ML/MIN (>60); Globulin 3.2 g/dL (1.3-3.2); Total Protein,Serum 7.1 g/dl (6.3-8.2)
[2024-04-29 18:51] LABS: Glucose 90 mg/dl (74-100)
[2024-04-29 19:18] LABS: Prostate Specific Ag Screen 4.3 ng/ml (0.0-4.0)
== END 2024-04-29 23:59 | disposition home or self-care (01) ==
LOC: LAB.DROPOF 04-30 15:17
PROVIDERS: PCP Family Medicine; Visit Provider Family Medicine
DX: Z12.5 Encounter for screening for malignant neoplasm of prostate (principal); I10 Essential (primary) hypertension; E78.5 Hyperlipidemia, unspecified; R31.9 Hematuria, unspecified; F17.200 Nicotine dependence, unspecified, uncomplicated
CPT/HCPCS: 80053; 85025; 87086; G0103

== ENCOUNTER 2024-08-12 11:20 | Outpatient (CLI) | payer MEDICARE, SELFPAY ==
[2024-08-12 11:26] LABS: Microscopic, Urine URINE MICROSCOPIC (MICROSCOPIC)
[2024-08-12 12:20] LABS: Blood Urea Nitrogen 21 mg/dl (9-20); Estimated Glomerular Filt Rate 59 ml/min (>60); GFR (African American) 72 ML/MIN (>60)
[2024-08-12 12:40] LABS: Appearance,Urine Clear (Clear); Color,Urine Yellow (Yellow); PH,Urine 6.5 (5.0-8.5)
[2024-08-12 12:41] LABS: Bilirubin,Urine Negative (Negative); Blood, Urine Trace (Negative); Glucose,Urine (UA) Negative (Negative); Ketones,Urine Negative (Negative); Leukocyte Esterase,Urine Negative (Negative); Nitrate,Urine Negative (Negative); Protein,Urine 30 (Negative); RBC,Urine Occasional #/hpf (0-3); Specific Gravity, Urine >= 1.030 (1.005-1.030); WBC,Urine Occasional #/hpf (0-3)
== END 2024-08-12 23:59 | disposition home or self-care (01) ==
LOC: LAB 11:21
PROVIDERS: PCP Family Medicine; Visit Provider Urology
DX: R33.9 Retention of urine, unspecified (principal); R31.9 Hematuria, unspecified
CPT/HCPCS: 36415; 81001; 82565; 84520; 87086

== ENCOUNTER 2024-09-13 08:23 | Day surgery (SDC) | payer MEDICARE, SELFPAY ==
[2024-09-13 08:47] VITALS: BP 146/98; PULSE 73; RESP 20; TEMP 37.1; O2SAT 93
[2024-09-13] MEDS: 0.9 % SODIUM CHLORIDE 500 ML 25 ML IV (09:05)
[2024-09-13] MEDS: LIDOCAINE 2% UROJET 10ML 10 ML (09:05)
--- NOTE | 2024-09-13 09:09 | P.PCN_ITS ---
[facility] Procedure Note Date: 09/13/24 Time: 09:09 Procedure Note:: Chart review: 74-year-old patient who CT scan without infusion shows bilateral renal stones with the largest being 8 mm on 09/15. He is here to evaluate hematuria. He lives in a correction currently and has an indwelling [place] catheter and has failed his voiding trials. Preop diagnosis:HHematuria/urinary retention Postop diagnosis: Hematuria/urinary retention Operative note: The patient was brought to the operating suite. His indwelling [place] catheter was removed. His urethra was anesthetized with 2% Xylocaine jelly. The patient's anterior urethra was unremarkable. From the level of the verumontanum the patient has grade 2-3 prostate obstruction primarily from bilateral lobes. He thinks he has had some prior prostatic procedure but he is still obstructed. The patient's bladder is moderately trabeculated throughout. The ureteral orifices are normal bilaterally with clear E flux of urine. There is no evidence of bladder stone tumor hemorrhage or infection. The patient does feel a full bladder at about 200 cc irrigation installation. He could be considered for prostate surgery although caution that perhaps he has a decompensated bladder. I do not have urodynamics available to me. He is currently in a correction and they will not provide intermittent catheterization.
[2024-09-13 09:14] VITALS: BP 123/81; PULSE 67; RESP 18; TEMP 37.1; O2SAT 97
--- NOTE | 2024-09-13 09:41 | SUR.PHASEII ---
REPORT CALLED TO [facility] ON 09/13/24 @ [id number]. SPOKE WITH MAURICE ROSE RN.
== END 2024-09-13 09:30 | disposition home or self-care (01) ==
PROVIDERS: PCP Family Medicine; Visit Provider Urology
PROC: 0TJB8ZZ Inspection of Bladder, Via Natural or Artificial Opening Endoscopic (ICD-10-PCS; CPT 52000; principal; 2024-09-13 09:45)
DX: R31.9 Hematuria, unspecified (principal); N40.1 Benign prostatic hyperplasia with lower urinary tract symptoms; R33.8 Other retention of urine
CPT/HCPCS: 52000; 87086; 87088; 87186

== ENCOUNTER 2024-12-20 12:12 | Outpatient (CLI) | payer MEDICARE, SELFPAY ==
--- OUTSIDE RECORDS SUMMARY | 2024-12-23 12:20 | XMS_ITS | Encounter Summary ---
Author Organization [facility] Address [address] [place] [address] Care Team Providers Care Rocket Engine Component Mechanic Name Role Phone Unknown, Attending Provider Primary Care Provide r Unavailable Source Comments This information has been disclosed to you from confidential records protectfrom disclosure by state law. You shall make no further disclosure of thisinformation without the specific, written, and informed release of theindividual to whom it pertains, or as otherwise permitted by law. A generalauthorization for the release of medical or other information is not sufficientfor the purposes of the release of HIV test results or diagnoses. [id number] Health Encounter Details Date Type Department Care Team (Late st Contact Info) Description 01/05/2022 Ophth Exam [facility] Ophthalmology at [address] [place] [address] Krista Juarez MD Social History Tobacco Use Types Packs/Day Years Used Date Smoking Tobacco: Every Day Cigarettes Smokeless Tobacco: Never AUDIT-C Answer Date Recorded Q1: How often do you have a drink containing alc ohol? Patient declined 01/02/2022 Q2: How many drinks containi ng alcohol do you have on a typical day when you are drinking? Patient declined 01/02/2022 Q3: How often do you have si x or more drinks on one occasion? Patient declined 01/02/2022 Sex and Gender Information Value Date Recorded Sex Assigned at Not on file Legal Sex Male 10:28 PM EST Gender Identity Not on file Sexual Orientation Not on file COVID-19 Exposure Response Date Recorded In the last 10 days, have yo u been in contact with someone who was confirmed or suspected to have Coronavirus/COVID-19? No / Unsure 12/30/2021 5:26 PM EDT documented as of this encounter Plan of Treatment Not on file documented as of this encounter Visit Diagnoses Not on filedocumented in this encounter Care Teams Rocket Engine Component Mechanic Relationship Specialty Start Date End Date Unknown, Attending Provider PCP - General 12/29/21 documented as of this encounter
--- OUTSIDE RECORDS SUMMARY | 2024-12-23 12:20 | XMS_ITS | Encounter Summary ---
Author Organization [facility] Address [address] [place] [address] Care Team Providers Care Transitional Living Specialist Name Role Phone Unknown, Attending Provider Primary [...] release of HIV test results or diagnoses. [id number] Health Encounter Details Date Type Department Care Team (Late st Contact Info) Description 01/07/2022 Ophth Exam [facility] Ophthalmology at [address] [place] [address] Krista Juarez MD Social History [...] on filedocumented in this encounter Care Teams Transitional Living Specialist Relationship Specialty Start Date End Date Unknown, Attending Provider PCP - General 12/29/21 documented as of this encounter
--- OUTSIDE RECORDS SUMMARY | 2024-12-23 12:20 | XMS_ITS ---
Author Organization [facility] Care Team Providers Care Director Construction Services Name Role Phone Dalia Medina Unavailable Unavailable Juanita Rojas Unavailable Unavailable Dede, Bahar Unavailable Unavailable Calico, Saiya Unavailable Unavailable Yulia Navarro Unavailable Unavailable Terrance Silvestre Unavailable Unavailable Sheets, Imelda Unavailable Unavailable Lashay, Karin Unavailable Unavailable Pavlou, Samina Unavailable Unavailable Lange, Jenny Unavailable Unavailable Coles, Jamal Unavailable Unavailable Allergies and adverse reactions Code CodeSystem Substance Reaction Severity StartDate Concern Status 850671043 SNOMED CT Penicillins Unknown 12/22/2022 activ e 7804 RXNORM oxyCODONE Unknown 01/25/2023 active Care Team Name Role Address Phone Organization Dates Samina Marcus PCP [address], [place], [address], [place] (Office): : : [facility] 01/26/2023 - 02/06/2023 Dalia Medina [address] (Office): [facility] 01/26/2023 - 02/06/2023 Juanita Rojas [address] [place] [address], [facility], [facility] (Office): : [facility] 01/26/2023 - 02/06/2023 Teresa Dede [address] [place] [address], [facility] (Office): : [facility] 01/26/2023 - 02/06/2023 Asiya Boudreaux [address] [place] [address], [facility] (Office): : [facility] 01/26/2023 - 02/06/2023 Yulia Navarro [address] [place], [place], [facility], [facility] (Office): [facility] 01/26/2023 - 02/06/2023 Terrance Silvestre [address] [place] [address], [address] [place] [address] (Office): : [facility] 01/26/2023 - 02/06/2023 Imelda Sheets [address] [facility], [address], [place], [place], [facility], [facility] (Office): [facility] 01/26/2023 - 02/06/2023 Karin Metz [address] [facility] [address] [address], [facility] (Office): : [facility] 01/26/2023 - 02/06/2023 Jenny Lange [address] [place], [address], [place] (Office): [facility] [address] 01/26/2023 - 02/06/2023 Jamal Coles [address] [place] [place], [address], [facility] (Office): The [facility] [address] 01/26/2023 - 02/06/2023 Immunizations Immunization Status Vaccine Details Vaccine Code CodeSystem Date Notes Influenza cancelled Influenza, high-dose, split virus, quadrivalent, injectable, preservative free 197 CVX created date: 12/23/2022 consent date: 12/23/2022 TB 1 Step Mantoux (PPD) completed tuberculin skin test; unspecified formulation lotNumber: [id number] expiry: 01/27/2026 Mfg: TUBERSOL Given 0.1 ml Right Forearm subcutaneously 98 CVX created date: 01/26/2023 consent date: 01/26/2023 administer ed date: 01/26/2023 Educated by kevon alicea on 01/25/2023 TB 2 Step Mantoux Skin Test new tuberculin skin test; unspecified formulation 98 CVX created date: 02/01/2023 consent date: 03/28/2023 TB 2 Step Mantoux Skin Test completed tuberculin skin test; unspecified formulation lotNumber: [id number] expiry: 01/27/2026 Given 0.1 ml Left Forearm intradermally Step 2 of Multi-step with next step required 98 CVX created date: 02/01/2023 consent date: 02/01/2023 administer ed date: 02/01/2023 TB 2 Step Mantoux Skin Test completed tuberculin skin test; unspecified formulation lotNumber: [id number] expiry: 03/23/2026 Mfg: sanof1 Given 1.0 ml Right Forearm subcutaneously Step 2 of Multi-step with next step required 98 CVX created date: 12/29/2022 consent date: 12/29/2022 administer ed date: 12/29/2022 Educated by divine alicea lpn on 12/29/2022 TB 2 Step Mantoux Skin Test completed tuberculin skin test; unspecified formulation lotNumber: [id number] expiry: 02/26/2026 Mfg: Privaris limited Given 0.1 ml Left Forearm intradermally Step 1 of Multi-step with next step required 98 CVX created date: 12/23/2022 consent date: 12/22/2022 administer ed date: 12/23/2022 Pneumovax 13 cancelled pneumococcal conjugate vaccine, 13 valent 133 CVX created date: 12/23/2022 consent date: 12/23/2022 Pneumovax 23 cancelled pneumococcal polysaccharide vaccine, 23 valent 33 CVX created date: 12/23/2022 consent date: 12/23/2022 SARS-COV-2 (COVID-19) completed SARS-COV-2 (COVID-19) vaccine, vector non-replicating, recombinant spike protein-Ad26, preservative free, 0.5 mL Step 2 of Multi-step with next step required 212 CVX created date: 12/23/2022 administer ed date: 06/09/2021 [facility] SARS-COV-2 (COVID-19) completed SARS-COV-2 (COVID-19) vaccine, vector non-replicating, recombinant spike protein-Ad26, preservative free, 0.5 mL Step 1 of Multi-step with next step required 212 CVX created date: 12/23/2022 administer ed date: 08/04/2020 [facility] Mental Status Section Date Assessment Total Score Description 02/06/2023 BIMS 15 cognitively int act CAM 0 No delirium ind icated PHQ-9 12 moderate depres charles 02/01/2023 BIMS 15 cognitively int act CAM 0 No delirium ind icated PHQ-9 12 moderate depres charles Problems Problem # Description Date of onset Resolved Date Code CodeSystem Concern Status 1 ANEMIA, UNSPECIFIED [address] active 2 CHRONIC KIDNEY DISEASE, STAGE [address] active 3 LOW BACK PAIN, UNSPECIFIED [address] active 4 OTHER ANTERIOR DISLOCATION OF RIGHT HIP, SUBSEQUENT ENCOUNTER [address] active 5 OTHER CHRONIC PAIN [address] active 6 OTHER REDUCED MOBILITY [address] active 7 PAIN IN RIGHT SHOULDER [address] active 8 PRIMARY OSTEOARTHRITIS, RIGHT SHOULDER [address] active 9 STIFFNESS OF RIGHT SHOULDER, NOT ELSEWHERE CLASSIFIED [address] active 10 UNSPECIFIED DISLOCATION OF RIGHT HIP, SEQUELA 023 02/03/[address] completed 11 UNSPECIFIED DISLOCATION OF RIGHT HIP, SUBSEQUENT ENCOUNTER [address] active 12 ACUTE KIDNEY FAILURE, UNSPECIFIED 023 02/03/[address] completed 13 ACUTE POSTHEMORRHAGIC ANEMIA [address] active 14 AGE-RELATED PHYSICAL DEBILITY 023 02/03/[address] completed 15 BENIGN PROSTATIC HYPERPLASIA WITH LOWER URINARY TRACT SYMPTOMS [address] active 16 CHRONIC KIDNEY DISEASE, UNSPECIFIED [address] active 17 CHRONIC OBSTRUCTIVE PULMONARY DISEASE, UNSPECIFIED [address] active 18 ESSENTIAL (PRIMARY) HYPERTENSION [address] active 19 FRACTURE OF UNSPECIFIED PART OF NECK OF RIGHT FEMUR, SUBSEQUENT ENCOUNTER FOR CLOSED FRACTURE WITH ROUTINE HEALING [address] active 20 FRACTURE OF UNSPECIFIED PART OF NECK OF UNSPECIFIED FEMUR, SUBSEQUENT ENCOUNTER FOR CLOSED FRACTURE WITH ROUTINE HEALING [address] active 21 FREQUENCY OF MICTURITION 023 02/03/[address] completed 22 GASTRO-ESOPHAGEAL REFLUX DISEASE WITHOUT ESOPHAGITIS [address] active 23 HISTORY OF FALLING [address] active 24 MUSCLE WEAKNESS (GENERALIZED) [address] active 25 NEED FOR ASSISTANCE WITH PERSONAL CARE 023 02/03/[id number] completed 26 OTHER EMPHYSEMA [address] active 27 OTHER INJURY OF UNSPECIFIED BODY REGION, SUBSEQUENT ENCOUNTER [address] active 28 PERIPROSTHETIC FRACTURE AROUND OTHER INTERNAL PROSTHETIC JOINT, SUBSEQUENT ENCOUNTER [address] active 29 PRESENCE OF UNSPECIFIED ARTIFICIAL HIP JOINT [address] active 30 TOBACCO USE 023 Z72.0 ICD-10-CM active 31 UNSPECIFIED MOOD [AFFECTIVE] DISORDER [address] active 32 UNSPECIFIED SYMPTOMS AND SIGNS INVOLVING THE GENITOURINARY SYSTEM [address] active 33 UNSTEADINESS ON FEET [address] active Reason for Referral No Reasons for Referral Entered Social History Social History Observation Description Start Date End Date Code Code System Current Smoking Status Tobacco smoking consumption unknown 428558466 SNOMED CT Sex Assigned At Male 1950 [address]-9 [facility] Gender Identity Vital Signs Code Code System Vitals Name Values and Units Timing Information 8462-4 [facility] Blood Pressure-Diastolic Value=93 Un its=mmHg 02/06/2023 8480-6 [facility] Blood Pressure-Systolic Bkxop=745 Un its=mmHg 02/06/2023 72686-2 [facility] Pain Level Value=0.0 02/06/2023 9279-1 [facility] Respiratory Rate Value=18.0 Units=/m in 02/06/2023 8310-5 [facility] Body Temperature Value=97.3 Units= F 02/06/2023 8867-4 [facility] Heart rate Value=72.0 Units=/min 03/2023 11189-9 [facility] O2 % dC Oximetry Value=93.0 Units= % 02/06/2023 70735-2 [facility] Weight Jbrzw=791.8 Units=Lbs 09/2022 8302-2 [facility] Height Value=74.0 Units=Inches 01/26/2023
--- OUTSIDE RECORDS SUMMARY | 2024-12-23 12:20 | XMS_ITS ---
Author Organization [facility] Care Team Providers Care Wet Sander Name Role Phone Carol Bonilla Unavailable Unavailable Zayda Benitez Unavailable Unavailable Amaris Tobin Unavailable Unavailable Clare Cochran Unavailable Unavailable Allergies and adverse reactions Code CodeSystem Substance Reaction Severity StartDate Concern Status 7984 RXNORM Penicillin Unknown 11/01/2022 active 7804 RXNORM oxyCODONE Unknown 09/13/2023 active Care Team Name Role Address Phone Organization Dates Zayda Benitez PCP [address] [place] [address], [facility] (Office): [facility] 09/13/2023 - 10/07/2023 Carol Bonilla [address] [employer] (Office): : [facility] 09/13/2023 - 10/07/2023 Amaris Tobin [address] [place] [address] 09/13/2023 - 10/07/2023 Clare Cochran [address] (Office): : [facility] 09/13/2023 - 10/07/2023 Immunizations Immunization Status Vaccine Details Vaccine Code CodeSystem Date Notes TB 2 Step Mantoux Skin Test completed tuberculin skin test; unspecified formulation lotNumber: [id number] expiry: 06/29/2024 Mfg: PAR Given 0.1 ml Right Forearm intradermally Step 2 of Multi-step with next step required 98 CVX created date: 04/22/2023 consent date: 04/22/2023 administere d date: 04/22/2023 TB 2 Step Mantoux Skin Test completed tuberculin skin test; unspecified formulation Given 0.1 ml Left Forearm intradermally Step 1 of Multi-step with next step required 98 CVX created date: 04/19/2023 consent date: 04/19/2023 administere d date: 04/12/2023 TB 2 Step Mantoux Skin Test completed tuberculin skin test; unspecified formulation Given intradermally Step 2 of Multi-step with next step required 98 CVX created date: 11/10/2022 consent date: 11/10/2022 administere d date: 11/10/2022 TB 2 Step Mantoux Skin Test completed tuberculin skin test; unspecified formulation lotNumber: [id number] Mfg: [employer] Given 0.1 unit Left Forearm subcutaneously Step 1 of Multi-step with next step required 98 CVX created date: 11/02/2022 consent date: 11/01/2022 administere d date: 11/01/2022 Diphtheria completed tetanus toxoid, reduced diphtheria toxoid, and acellular pertussis vaccine, adsorbed 115 CVX created date: 11/03/2022 administere d date: 08/02/1996 Pneumococcal PCV13 completed pneumococcal conjugate vaccine, 13 valent 133 CVX created date: 11/03/2022 administere d date: 06/28/2021 SARS-COV-2 (COVID-19) completed SARS-COV-2 (COVID-19) vaccine, mRNA, spike protein, LNP, bivalent, preservative free, 10 mcg/0.2 mL dose Step 1 of Multi-step 230 CVX created date: 11/03/2022 administere d date: 06/09/2021 [facility] SARS-COV-2 (COVID-19) completed SARS-COV-2 (COVID-19) vaccine, mRNA, spike protein, LNP, bivalent, preservative free, 10 mcg/0.2 mL dose Step 1 of Multi-step 230 CVX created date: 11/03/2022 administere d date: 08/04/2020 [facility] Mental Status Section Date Assessment Total Score Description 10/07/2023 BIMS 14 cognitively int act CAM 0 No delirium ind icated PHQ-9 14 moderate depres charles 09/15/2023 BIMS 14 cognitively int act CAM 0 No delirium ind icated PHQ-9 14 moderate depres charles Problems Problem # Description Date of onset Resolved Date Code CodeSystem Concern Status 1 HISTORY OF FALLING [address] active 2 MULTIPLE FRACTURES OF RIBS, RIGHT SIDE, SUBSEQUENT ENCOUNTER FOR FRACTURE WITH ROUTINE HEALING [address] active 3 OTHER SPECIFIED ARTHRITIS, MULTIPLE SITES [address] active 4 OTHER SPECIFIED INTERSTITIAL PULMONARY DISEASES [address] active 5 WEAKNESS [address] active 6 ANXIETY DISORDER, UNSPECIFIED [address] active 7 CALCULUS OF KIDNEY [address] active 8 DEPRESSION, UNSPECIFIED [address] active 9 GENERALIZED ABDOMINAL PAIN [address] active 10 HEMATURIA, UNSPECIFIED [address] active 11 OTHER INTERVERTEBRAL DISC DEGENERATION, LUMBAR REGION [address] active 12 OTHER SPECIFIED DISORDERS INVOLVING THE IMMUNE MECHANISM, NOT ELSEWHERE CLASSIFIED [address] active 13 ACIDOSIS, UNSPECIFIED [address] active 14 ACUTE KIDNEY FAILURE, UNSPECIFIED [address] active 15 AFTERCARE FOLLOWING JOINT REPLACEMENT SURGERY [address] active 16 CHRONIC HEPATITIS, UNSPECIFIED [address] active 17 CHRONIC KIDNEY DISEASE, STAGE 2 (MILD) [address] active 18 CHRONIC OBSTRUCTIVE PULMONARY DISEASE, UNSPECIFIED [address] active 19 DIFFICULTY IN WALKING, NOT ELSEWHERE CLASSIFIED [address] active 20 DISORDER OF PROSTATE, UNSPECIFIED [address] active 21 EMPHYSEMA, UNSPECIFIED [address] active 22 ESSENTIAL (PRIMARY) HYPERTENSION [address] active 23 FREQUENCY OF MICTURITION [address] active 24 GASTRO-ESOPHAGEAL REFLUX DISEASE WITHOUT ESOPHAGITIS [address] active 25 HYPERLIPIDEMIA, UNSPECIFIED [address] active 26 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 [address] active 27 MOOD DISORDER DUE TO KNOWN PHYSIOLOGICAL CONDITION, UNSPECIFIED [address] active 28 MORBID (SEVERE) OBESITY DUE TO EXCESS CALORIES [address] active 29 MUSCLE WEAKNESS (GENERALIZED) [address] active 30 OTHER SPECIFIED ARTHRITIS, UNSPECIFIED SITE [address] active 31 PRESENCE OF RIGHT ARTIFICIAL HIP JOINT [address] active 32 SACROILIITIS, NOT ELSEWHERE CLASSIFIED [address] active 33 TOBACCO USE 3 Z72.0 ICD-10-CM active 34 UNSPECIFIED OSTEOARTHRITIS, UNSPECIFIED SITE [address] active 35 UNSTEADINESS ON FEET [address] active Reason for Referral No Reasons for Referral Entered Social History Social History Observation Description Start Date End Date Code Code System Current Smoking Status Tobacco smoking consumption unknown 412587021 SNOMED CT Sex Assigned At Male 1950 [address]-6 [facility] Gender Identity Vital Signs Code Code System Vitals Name Values and Units Timing Information 61757-7 [facility] Pain Level Value=0.0 10/07/2023 8462-4 [facility] Blood Pressure-Diastolic Value=72 Un its=mmHg 10/07/2023 8480-6 [facility] Blood Pressure-Systolic Lmbnw=509 Un its=mmHg 10/07/2023 9279-1 [facility] Respiratory Rate Value=18.0 Units=/m in 10/07/2023 8310-5 [facility] Body Temperature Value=98.6 Units= F 10/07/2023 8867-4 [facility] Heart rate Value=80.0 Units=/min 03/2024 09958-6 [facility] O2 % BldC Oximetry Value=93.0 Units= % 10/07/2023 80670-1 [facility] Weight Fcpsl=799.2 Units=Lbs 06/2023 8302-2 [facility] Height Value=74.0 Units=Inches 09/13/2023 2339-0 [facility] Blood Sugar Value=98.0 Units=mg/dL 11/16/2022
--- OUTSIDE RECORDS SUMMARY | 2024-12-23 12:20 | XMS_ITS | Encounter Summary ---
Author Organization [facility] Address [address] [place] [address] Care Team Providers Care Solutions Consultant Name Role Phone Unknown, Attending Provider Primary [...] release of HIV test results or diagnoses. [id number] Health Encounter Details Date Type Department Care Team (Late st Contact Info) Description 01/04/2022 Ophth Exam [facility] Ophthalmology at [address] [place] [address] Krista Juarez MD Social History [...] on filedocumented in this encounter Care Teams Solutions Consultant Relationship Specialty Start Date End Date Unknown, Attending Provider PCP - General 12/29/21 documented as of this encounter
--- OUTSIDE RECORDS SUMMARY | 2024-12-23 12:20 | XMS_ITS | Encounter Summary ---
Author Organization [facility] Address [address] [place] [address] Care Team Providers Care Child Protective Services Specialist Name Role Phone Unknown, Attending Provider [...] release of HIV test results or diagnoses. [id number] Health Encounter Details Date Type Department Care Team (Late st Contact Info) Description 01/14/2022 Ophth Exam [facility] Ophthalmology at [address] [place] [address] Krista Juarez MD Social History [...] on filedocumented in this encounter Care Teams Child Protective Services Specialist Relationship Specialty Start Date End Date Unknown, Attending Provider PCP - General 12/29/21 documented as of this encounter
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
--- OUTSIDE RECORDS SUMMARY | 2024-12-23 12:20 | XMS_ITS | Encounter Summary ---
Author Organization [facility] Address [address] [place] [address] Care Team Providers Care Agriscience Teacher Name Role Phone Unknown, Attending Provider Primary [...] release of HIV test results or diagnoses. [id number] Encounter Details Date Type Department Care Team (Late st Contact Info) Description 12/30/2021 Ophth Exam [facility] Ophthalmology at [address] [place] [address] Krista Juarez MD Social History Tobacco Use Types Packs/Day Years Used Date Smoking Tobacco: Never Assessed AUDIT-C Answer Date Recorded Q1: How often [...] PM EDT documented as of this encounter Functional Status * Audit-C Score Answer Date of Assessment Author -1 01/02/2022 12:55 AM EDT Zabrina Mott RN * Question Answer Date of Assessment Author Q1: How often do you have a drink containing alcohol? Patient declined 01/02/2022 12:55 AM EDT Zabrina Mott R N Q2: How many drinks containing alcohol do you have on a typical day when you are drinking? Patient declined 01/02/2022 12:55 AM EDT Zabrina Mott R N Q3: How often do you have six or more drinks on one occasion? Patient declined 01/02/2022 12:55 AM EDT Zabrina Mott R N documented as of this encounter Plan of Treatment Not on file documented as of this encounter Visit Diagnoses Not on filedocumented in this encounter Additional Health Concerns Infection Onset Date Last Indicated Resolved Time Rule Out COVID-19 12/30/2021 12/30/2021 12/30/2021 7:07 PM EDT documented as of this encounter Care Teams Agriscience Teacher Relationship Specialty Start Date End Date Unknown, Attending Provider PCP - General 12/29/21 documented as of this encounter
--- OUTSIDE RECORDS SUMMARY | 2024-12-23 12:20 | XMS_ITS | Encounter Summary ---
Author Organization [facility] Address [address] [place] [address] Care Team Providers Care Landscaping Manager Name Role Phone Unknown, Attending Provider Primary [...] release of HIV test results or diagnoses. [id number] Encounter Details Date Type Department Care Team (Late st Contact Info) Description 12/29/2021 Ophth Exam [facility] Ophthalmology at [address] [place] [address] Santos Claire MD Social History Tobacco Use Types Packs/Day [...] documented as of this encounter Care Teams Landscaping Manager Relationship Specialty Start Date End Date Unknown, Attending Provider PCP - General 12/29/21 documented as of this encounter
--- OUTSIDE RECORDS SUMMARY | 2024-12-23 12:20 | XMS_ITS | Encounter Summary ---
Author Organization [facility] Address [address] [place] [address] Care Team Providers Care Glazier Stained Glass Name Role Phone Unknown, Attending Provider Primary [...] release of HIV test results or diagnoses. [id number] Health Encounter Details Date Type Department Care Team (Late st Contact Info) Description 01/03/2022 Ophth Exam [facility] Ophthalmology at [address] [place] [address] Krista Juarez MD Social History [...] on filedocumented in this encounter Care Teams Glazier Stained Glass Relationship Specialty Start Date End Date Unknown, Attending Provider PCP - General 12/29/21 documented as of this encounter
--- OUTSIDE RECORDS SUMMARY | 2024-12-23 12:20 | XMS_ITS | Clinical Summary ---
Author Organization [facility] Address [address] [facility] [address] [place], [place] [address] Phone Care Team Providers Care Diamond Sawer Name Role Phone Terrance Zuleta MD Primary Care Provider [phone] Allergies Active Allergy Reactions Criticality Noted Date Comments Oxycodone Itching High 01/21/2023 Penicillins Hives High 12/04/2015 Medications esomeprazole (NEXIUM) 40 mg Oral Capsule, Delayed Release(E.C.) Take 40 mg by mouth daily. 6 Active tamsulosin (FLOMAX) 0.4 mg Oral Capsule, Sust. Release 24 hr Take 0.4 mg by mouth daily. 6 Active hydrOXYzine (VISTARIL) 25 mg Oral Capsule Take 25 mg by mouth 3 times daily as needed for Itching. Active Cholecalciferol , Vitamin D3, (VITAMIN D3) 50 mcg (2,000 unit) Oral Capsule Take 1 Capsule by mouth daily. 30 Capsule 3 Active ferrous sulfate 325 mg (65 mg iron) Oral Tablet Take 1 Tablet by mouth daily. 30 Tablet 3 Active celecoxib (CELEBREX) 200 mg Oral Capsule Take 200 mg by mouth daily. Active atorvastatin (LIPITOR) 40 mg Oral Tablet Take 40 mg by mouth daily. Active lisinopriL (PRINIVIL;ZESTR IL) 40 mg Oral Tablet Take 0.5 Tablets by mouth daily. 30 Tablet 3 Active aspirin 81 mg Oral Tablet, Chewable Take 1 Tablet by mouth daily. 21 Tablet 3 Active docusate sodium (COLACE) 100 mg Oral CapsuleIndicati ons:constipatio n Take 1 Capsule by mouth 2 times daily. Indications: constipation 60 Capsule 3 Active Additional Information Patient taking differently:100 mg OralDAILY, Indications: constipation, Reason: Other, Reported on 03/11/2024 escitalopram oxalate (LEXAPRO) 20 mg Oral TabletIndicatio ns:major depressive disorder Take 1 Tablet by mouth daily. Indications: major depressive disorder 30 Tablet 3 Active lidocaine (ASPERCREME) 4 % Top Adhesive Patch, Medicated Place 2 Patches onto the skin daily. one to right hip and one to right shoulder daily. On 12 hours, off 12 hours 60 Patch 3 Active albuterol (PROVENTIL HFA;VENTOLIN HFA) 90 mcg/actuation Inhl HFA Aerosol Inhaler Inhale 2-4 Puffs into the lungs every 6 hours as needed for Shortness of Breath. 18 g 2 3 Active fluticasone-ume clidin-vilanter (TRELEGY ELLIPTA) 100-62.5-25 mcg Inhl Disk with Device Inhale 1 Puff into the lungs daily. 60 Each 2 3 Active guaiFENesin (MUCINEX) 600 mg Oral Tablet Extended Release 12hr Take 1,200 mg by mouth 2 times daily. Active acetaminophen (TYLENOL) 500 mg Oral Tablet Take 1 Tablet by mouth 3 times daily. 4 Active Active Problems Patient Care Coordination No te Formatting of this note migh t be different from the original. [facility] - Reggie Del Rio MD Interventional Pain Protocol: Sudhir report completed (EVERY 3 MONTHS) (03/06/24) Pharmacy: [facility] [address] [place] [phone] [facility] [phone] Problem Noted Date Diagnosed Date Generalized weakness 06/05/2023 Pneumonia of both lower lobes due to infectious organism 02/17/2023 Uses brace 02/17/2023 Overview (02/17/2023): For hip dislocation Acute respiratory failure with hypoxia 3 Anterior dislocation of right hip, initial encou nter 01/21/2023 Periprosthetic hip fracture, initial encounter 0 12/16/2022 Acute postoperative anemia due to expected blood loss 10/28/2022 Hypersensitivity pneumonitis 10/28/2022 Paraseptal emphysema 10/28/2022 Fracture 10/27/2022 AMANUEL (acute kidney injury) 10/27/2022 Closed fracture of right hip 10/26/2022 Overview (10/26/2022): Added automatically from request for surgery [id number] Mood disorder 10/26/2022 CKD (chronic kidney disease) 10/26/2022 Tobacco abuse 10/26/2022 Sacroiliitis 08/06/2021 Benign prostatic hyperplasia with urinary freque ncy 01/04/2017 Low libido 10/03/2016 Lower urinary tract symptoms (LUTS) 10/03/2016 Calculus of gallbladder 12/08/2015 Gallstones 12/04/2015 Hypertension 12/04/2015 Bladder stone Immunizations Immunization Administration Dates Next Due Pneumococcal Conjugate Vacci ne 20 Valent 01/23/2023(Deferred: - pt requests to wait) Surgical History Surgery Date Site/Laterality Comments FINGER AMPUTATION left hand CHOLECYSTECTOMY, LAPAROSCOPIC 12/08/2015 Abdomen/N/A LAPAROSCOPIC CHOLECYSTECTOMY; Surgeon: Enzo Gomez MD; Location: [facility]; Service: General COLONOSCOPY BLADDER STONE REMOVAL 01/17/2017 N/A CYSTOSCOPY, LITHOLAPAXY WITH HOLMIUM LASER OF BLADDER CALCULUS; Surgeon: Isidoro Patricia MD; Location: [facility]; Service: Urology PROSTATE SURGERY 10/24/2017 Penis/N/A CYSTOSCOPY UROLIFT; Surgeon: Isidoro Patricia MD; Location: [facility]; Service: Urology Medical devices from this surgery are in the Medical Devices section. IR SACROILIAC JOINT INJECTION 08/18/2021 IR SACROILIAC JOINT INJECTION 08/18/2021 Pablo Del Rio MD [facility] IR ARTHROCENTESIS ASPIRATION LARGE JOINT 09/08/2021 IR ARTHROCENTESIS ASPIRATION LARGE JOINT 09/08/2021 Pablo Del Rio MD [facility] IR 2 LEVEL BILATERAL MEDIAL BRANCH BLOCK LUM SAC 01/26/2022 IR 2 LEVEL BILATERAL MEDIAL BRANCH BLOCK LUM SAC 01/26/2022 Pablo Del Rio MD [facility] IR 2 LEVEL BILATERAL MEDIAL BRANCH BLOCK LUM SAC 03/23/2022 IR 2 LEVEL BILATERAL MEDIAL BRANCH BLOCK LUM SAC 03/23/2022 Pablo Del Rio MD [facility] IR SACROILIAC JOINT INJECTION 09/07/2022 IR SACROILIAC JOINT INJECTION 09/07/2022 Pablo Del Rio MD [facility] HIP ARTHROPLASTY 10/27/2022 Hip/Right Right total hip arthroplasty; Surgeon: Terrance Sher MD; Location: [facility]; Service: Orthopedics Medical devices from this surgery are in the Medical Devices section. HIP CLOSED REDUCTION 12/18/2022 Hip/Right Closed reduction of the right hip; Surgeon: Terrance Sher MD; Location: [facility]; Service: Orthopedics TOTAL HIP ARTHROPLASTY 12/17/2022 Hip/Right Revision of right total hip replacement, posterior; Surgeon: Terrance Sher MD; Location: [facility]; Service: Orthopedics Medical devices from this surgery are in the Medical Devices section. HIP CLOSED REDUCTION 01/21/2023 Hip/Right right hip closed reduction; Surgeon: Rodo Zayas MD; Location: [facility]; Service: Orthopedics Medical History Medical History Date Comments Hypertension Chronic kidney disease kidney st ones JOSHI (dyspnea on exertion) Hyperlipidemia Hepatitis as a child Heartburn Arthritis Family History Medical History Relation Name Comments Heart Disease Father Cancer Mother Colon Cancer Mother Relation Name Status Comments Father Mother Social History Tobacco Use Types Packs/Day Years Used Date Smoking Tobacco: Every Day Cigarettes 1 43.8 Started: 02/17/1981 Smokeless Tobacco: Never Tobacco Cessation:Ready to Q uit: Not Asked; Counseling Given: Not Answered Alcohol Use Standard Drinks/Week Comments No 0 (1 standard drink = 0.6 oz pur e alcohol) [facility] Utilities Answer Date Recorded In the past 12 months has [employer] electric, gas, oil, or water company threatened to shut off services in your home? No 06/06/2023 Overall Financial Resource Strain (CARDIA) Answe r Date Recorded How hard is it for you to pa y for the very basics like food, housing, medical care, and heating? Not hard at all 06/06/2023 PHQ-2 Answer Date Recorded PHQ-2 Total Score 2 06/06/2023 [facility] [place] [facility] - Occupational Stress Questionnaire Answer Date Recorded Do you feel stress - tense, restless, nervous, or anxious, or unable to sleep at night because your mind is troubled all the time - these days? Only a little 06/06/2023 Exercise Vital Sign Answer Date Recorde d On average, how many days pe r week do you engage in moderate to strenuous exercise (like a brisk walk)? 0 days 06/06/2023 On average, how many minutes do you engage in exercise at this level? 0 min 06/06/2023 Hunger Vital Sign Answer Date Recorded Within the past 12 months, y ou worried that your food would run out before you got the money to buy more. Never true 06/06/19 24 Within the past 12 months, t he food you bought just didn't last and you didn't have money to get more. Never true 06/06/2023 PRAPARE - Transportation Answer Date Re corded In the past 12 months, has l ack of transportation kept you from medical appointments or from getting medications? No 01/28 In the past 12 months, has l ack of transportation kept you from meetings, work, or from getting things needed for daily living? No 02/18/2023 [facility] IP Transportation Answer D ate Recorded In the past 12 months, has l ack of reliable transportation kept you from medical appointments, meetings, work or from getting things needed for daily living? No 06/06/2023 Sexually Active Control Partners Comments Yes Female Sex and Gender Information Value Date Recorded Sex Assigned at Not on file Legal Sex Male 9:24 PM EDT Gender Identity Not on file Sexual Orientation Not on file Obstetrics History Last Filed Vital Signs Vital Sign Reading Time Taken Comments Blood Pressure 157/91 01/10/2024 1:52 PM EDT Pulse 66 01/10/2024 1:52 PM EDT Temperature 36.6 C (97.8 F) 01/10/2024 1:21 PM EDT Respiratory Rate 18 06/09/2023 8:24 AM EST Oxygen Saturation 96% 01/10/2024 1:52 PM EDT Inhaled Oxygen Concentration - - Weight 98.9 kg (218 lb) 03/11/2024 12:52 PM EDT Height 188 cm (6' 2 ) 03/11/2024 12:52 PM EDT Body Mass Index 27.99 03/11/2024 12:52 PM EDT Plan of Treatment Health Maintenance Due Date Last Done Comments Wellness Exam Medicare 1953 Cologuard 1995 FIT 1995 Sigmoidoscopy 1995 Virtual Colonography 1995 Zoster (1 of 2) 2000 DTaP/TDaP/Td (2 - Td or Tdap) 08/02/2006, 08/02/1996 RSV or 60+ (1 - Ris k 60-74 years 1-dose series) 2010 AAA Screening 2015 Pneumococcal Vaccine 50+ (2 of 2 - PPSV23, PCV20, or PCV21) 08/23/2021 06/28/2021 Low Dose Lung Cancer Screening 01/23/2024 0 01/22/2023, 10/26/2022, 12/30/2021 COVID-19 Vaccine (1 - 2023-2 5 season) 2024 Influenza Vaccine (#1) 2025 Colon Cancer Screening 08/16/2026 Colonoscopy 08/16/2026 08/16/2016 Hepatitis C Screening Completed 07/13/2021 Hepatitis B Vaccine Aged Out No longe r eligible based on patient's age to complete this topic Meningococcal B Vaccine Aged Out No l onger eligible based on patient's age to complete this topic Medical Devices Implanted Type Area Glass Breaker Device Identifier Shelf Expiration Date Model / Serial / Lot Implant Urological Urolift - [id number] Implanted:Qty: 1 on 10/24/2017 by Isidoro Patricia MD at [facility] N/A: Penis NEOTECH PRDT 03/09/2019 GN213-7 / [id number] / Implant Urological Urolift - [id number] Implanted:Qty: 1 on 10/24/2017 by Isidoro Patricia MD at [facility] N/A: Penis NEOTECH PRDT 03/09/2019 GV609-7 / [id number] / Implant Urological Urolift - [id number] Implanted:Qty: 1 on 10/24/2017 by Isidoro Patricia MD at [facility] N/A: Penis NEOTECH PRDT 12/20/2018 IC316-0 / [id number] / Implant Urological Urolift - [id number] Implanted:Qty: 1 on 10/24/2017 by Isidoro Patricia MD at [facility] N/A: Penis NEOTECH PRDT 03/09/2019 [id number] / [id number] / Cup Actb Trident Ii Sz-F 56mm Clstr Scr 5hl Tritan Hap Prim - [id number] Implanted:Qty: 1 on 10/27/2022 by Terrance Sher MD at [facility] Right: Hip CHON:ORTHOPED ICS [id number] 07/12/2027 702-04-56 F / / [id number] Screw 6.5x25mm Trident Saúl Ss Hex Thrd St Lpro Actb Hip - [id number] Implanted:Qty: 2 on 10/27/2022 by Terrance Sher MD at [facility] Right: Hip CHON:ORTHOPED ICS [id number] 08/18/2027 4171-2655 / / [id number] Insert O Degree Trident X 3 36mm Code F - [id number] Implanted:Qty: 1 on 10/27/2022 by Terrance Sher MD at [facility] Right: Hip CHON:ORTHOPED ICS [id number] 05/31/2027 723-00-36 F / / [id number] Cable 2mm Dall-Mil Troch Vital Bead Med Slv Ortho Strl - [id number] Implanted:Qty: 1 on 12/17/2022 by Terrance Sher MD at [facility] Right: Hip CHON:ORTHOPED ICS [id number] 08/21/2027 6704-0-52 0 / / [id number] Cable 2mm Dall-Mil Troch Vital Bead Med Slv Ortho Strl - [id number] Implanted:Qty: 1 on 12/17/2022 by Terrance Sher MD at [facility] Right: Hip CHON:ORTHOPED ICS [id number] 08/21/2027 6704-0-52 0 / / [id number] Cable 2mm Dall-Mil Troch Vital Bead Med Slv Ortho Strl - [id number] Implanted:Qty: 1 on 12/17/2022 by Terrance Sher MD at [facility] Right: Hip CHON:ORTHOPED ICS [id number] 08/21/2027 6704-0-52 0 / / [id number] Stem 17mm Restor Rev Mod Ti Hap Por Conic Dist Hip Prim - [id number] Implanted:Qty: 1 on 12/17/2022 by Terrance Sher MD at [facility] Right: Hip CHON:ORTHOPED ICS [id number] 06/17/2027 6276-7-01 7 / / [id number] F Stem 23mm Std Restor Rev Mod [place] Ti Hap Por Conic +0mm - [id number] Implanted:Qty: 1 on 12/17/2022 by Terrance Sher MD at [facility] Right: Hip CHON:ORTHOPED ICS [id number] 07/12/2027 6276-1-02 3 / / [id number] Head Fem V-40 36mm +5mm Nk Biolox Delta Cerm Tapr Prim Mod - [id number] Implanted:Qty: 1 on 12/17/2022 by Terrance Sher MD at [facility] Right: Hip CHON:ORTHOPED ICS [id number] 08/08/2027 6570-0-23 6 / / [id number] Cable 2mm Dall-Mil Troch Vital Bead Med Slv Ortho Strl - [id number] Implanted:Qty: 1 on 12/17/2022 by Terrance Sher MD at [facility] Right: Hip CHON:ORTHOPED ICS [id number] 08/21/2027 6704-0-52 0 / / [id number] Bioprep Bone Preparation Kit - [id number] Implanted:Qty: 1 on 12/17/2022 by Terrance Sher MD at [facility] Right: Hip CHON:INSTRUME NTS [id number] / / Explanted Type Area Glass Breaker Device Identifier Shelf Expiration Date Model / Serial / Lot Head Fem V-40 36mm-5mm Nk Biolox Delta Cerm Tapr Prim Mod - [id number] Implanted:Qty: 1 on 10/27/2022 by Terrance Sher MD at [facility] Explanted:Qty: 1 on 12/17/2022 by Terrance Sher MD at [facility] Right: Hip CHON:ORTHOPED ICS 08/21/2027 6570-0-036 / / [id number] Stem Hip Insignia High Offset 41mm X 109mm Size 7 - [id number] Implanted:Qty: 1 on 10/27/2022 by Terrance Sher MD at [facility] Explanted:Qty: 1 on 12/17/2022 by Terrance Sher MD at [facility] Right: Hip CHON:ORTHOPED ICS [id number] 03/16/2027 9970-0762 / / [id number] Procedures Procedure Name Priority Date/Time Associated Diagnosis Comments CT CHEST HIGH RESOLUTION WO CONTRAST SHELBIE 01/22/2023 8:40 AM EDT HEPATITIS C ANTIBODY IGM + IGG Routine 07/13/2021 1:11 PM EST Polyarthralgia [facility] EGD-COLONOSCOPY Routine 08/16/2016 12:40 PM EDT from Last 3 Months or Most Recently Relevant to Health Maintenance Results * CT CHEST HIGH RESOLUTION WO CONTRAST (01/22/2023 8:40 AM EDT) Anatomical Region Laterality Modality Chest Computed Tomogra phy 01/22/2023 8:40 AM EDT Impressions 01/22/2023 9:30 AM EDT 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 - Note: Radiology results need to be interpreted within a comprehensive clinical context. If you have questions about the radiology report, please contact the office of the ordering clinician. Narrative 01/22/2023 9:[address] CHEST HIGH-RESOLUTION WITHOUT CONTRAST, 01/22/2023 8:40 AM CLINICAL HISTORY: -ILD. COMPARISON: Chest CT 10/26/2022 PROCEDURE COMMENTS: High-resolution CT chest per protocol. Multiplanar reconstructions. Dose 1 : CT DLP Total : 193.09 mGycm DLP Spiral Max : 149.42 mGycm Maximum CTDI Vol : 4.33 mGy SSDE : 3.464 mGy SSDE Diameter : 41.7 cm SSDE Source : Lat FINDINGS: No mediastinal or hilar mass lesion. Overall unchanged peripheral and peribronchial vascular upper lobe predominant reticulation compared to the prior chest CT 10/26/2022. No new suspicious or enlarging pulmonary nodules. No significant air trapping. Mediastinal and visceral pleura unremarkable. Tracheobronchial tree patent. Coronary artery calcification: Severe and/or stents. Chronic bilateral rib fracture deformities. Incidental: Status post cholecystectomy. Otherwise visible abdominal viscera are unremarkable. Procedure Note Miguelito Prakash MD - 01/22/2023 CT CHEST HIGH-RESOLUTION WITHOUT CONTRAST, 01/22/2023 8:40 AM CLINICAL HISTORY: -ILD. COMPARISON: Chest CT 10/26/2022 PROCEDURE COMMENTS: High-resolution CT chest per protocol. Multiplanar reconstructions. Dose 1 : CT DLP Total : 193.09 mGycm DLP Spiral Max : 149.42 mGycm Maximum CTDI Vol : 4.33 mGy SSDE : 3.464 mGy SSDE Diameter : 41.7 cm SSDE Source : Lat FINDINGS: No mediastinal or hilar mass lesion. Overall unchanged peripheral and peribronchial vascular upper lobepredominant reticulation compared to the prior chest CT 10/26/2022. No new suspiciousor enlarging pulmonary nodules. No significant air trapping. Mediastinal and visceral pleura unremarkable. Tracheobronchial treepatent. Coronary artery calcification: Severe and/or stents. Chronic bilateral rib fracture deformities. Incidental: Status post cholecystectomy. Otherwise visible abdominalviscera are unremarkable. 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 - Note: Radiology results need to be interpreted within a comprehensiveclinical context. If you have questions about the radiology report, please contactthe office of the ordering clinician. Saw Mejias MD IM CT ORDERABLES Final Result * HEPATITIS C ANTIBODY IGM + IGG (07/13/2021 1:11 PM EST) Hep C Ab Non-Reactiv e Non-Reacti ve 07/13/2021 10:38 PM EST PREFERRED [email or web address] Blood Venipuncture / Unknown 07/13/2021 1:11 PM EST 07/13/2021 1:11 PM EST us Dona Parra MD IMMUNOLOGY ORDERABLES Final Resu lt [employer] [address] [facility], [place] [address] * [facility] EGD-COLONOSCOPY (08/16/2016 12:40 PM EDT) 08/16/2016 12:4 0 PM EDT Impressions [facility] - 08/16/2016 1:23 PM EDT Plan: Colonoscopy, Screening in 10 years. It will NOT be their first colonoscopy. This section is an excerpt of the full report. us Uri Tang MD GI PROCEDURE ORDERABLES Final R esult Performing Organization Address City/[facility] [place] [address] from Last 3 Months or Most Recently Relevant to Health Maintenance Insurance MEDICARE PPO [place] [id number] Advance Directives For more information, please contact: [phone] * Full Code (Latest Code Status on File) Date Activated Date Inactivated Comments 06/06/2023 8:21 AM 06/09/2023 3:23 PM * Full Code Date Activated Date Inactivated Comments 02/17/2023 9:37 PM 02/21/2023 4:28 PM * Full Code Date Activated Date Inactivated Comments 01/21/2023 6:11 AM 01/26/2023 12:17 AM * DNR Date Activated Date Inactivated Comments 12/16/2022 8:58 AM 12/22/2022 11:27 PM * Full Code Date Activated Date Inactivated Comments 12/16/2022 7:25 AM 12/16/2022 8:58 AM Care Teams Diamond Sawer Relationship Specialty Start Date End Date Terrance Zuleta MD [facility] [address] [facility] [phone] PCP - General Family Medicine 08/21/14
--- OUTSIDE RECORDS SUMMARY | 2024-12-23 12:20 | XMS_ITS | Encounter Summary ---
Author Organization [facility] Address [address] [place] [address] Care Team Providers Care Bulk Sausage Casing Tier Off Name Role Phone Unknown, Attending Provider Primary [...] release of HIV test results or diagnoses. [id number] Health Encounter Details Date Type Department Care Team (Late st Contact Info) Description 12/31/2021 Ophth Exam [facility] Ophthalmology at [address] [place] [address] Santos Claire MD Social History [...] on filedocumented in this encounter Care Teams Bulk Sausage Casing Tier Off Relationship Specialty Start Date End Date Unknown, Attending Provider PCP - General 12/29/21 documented as of this encounter
--- OUTSIDE RECORDS SUMMARY | 2024-12-23 12:20 | XMS_ITS | Encounter Summary ---
Author Organization [facility] Address [address] [place] [address] Care Team Providers Care Supportive Employment Case Manager Name Role Phone Unknown, Attending Provider [...] release of HIV test results or diagnoses. [id number] Health Encounter Details Date Type Department Care Team (Late st Contact Info) Description 01/08/2022 Ophth Exam [facility] Ophthalmology at [facility] [address] [place] [address] [address] [place] [address] Shyla Savage MD [address] [place] [address] Social History Tobacco Use Types Packs/Day Years [...] on filedocumented in this encounter Care Teams Supportive Employment Case Manager Relationship Specialty Start Date End Date Unknown, Attending Provider PCP - General 12/29/21 documented as of this encounter
--- OUTSIDE RECORDS SUMMARY | 2024-12-23 12:20 | XMS_ITS | Encounter Summary ---
Author Organization [facility] Address [address] [place] [address] Care Team Providers Care Media Sales Representative Name Role Phone Unknown, Attending Provider Primary [...] release of HIV test results or diagnoses. [id number] Health Encounter Details Date Type Department Care Team (Late st Contact Info) Description 01/11/2022 Ophth Exam [facility] Ophthalmology at [address] [place] [address] Krista Juarez MD Social History [...] on filedocumented in this encounter Care Teams Media Sales Representative Relationship Specialty Start Date End Date Unknown, Attending Provider PCP - General 12/29/21 documented as of this encounter
--- OUTSIDE RECORDS SUMMARY | 2024-12-23 12:20 | XMS_ITS | Encounter Summary ---
Author Organization [facility] Address [address] [place] [address] Care Team Providers Care Proof Coins Inspector Name Role Phone Unknown, Attending Provider Primary [...] release of HIV test results or diagnoses. [id number] Health Encounter Details Date Type Department Care Team (Late st Contact Info) Description 01/10/2022 Ophth Exam [facility] Ophthalmology at [address] [place] [address] Krista Juarez MD Social History [...] on filedocumented in this encounter Care Teams Proof Coins Inspector Relationship Specialty Start Date End Date Unknown, Attending Provider PCP - General 12/29/21 documented as of this encounter
--- OUTSIDE RECORDS SUMMARY | 2024-12-23 12:20 | XMS_ITS | Encounter Summary ---
Author Organization [facility] [place] [address] Care Team Providers Care Debug Technician Name Role Phone Terrance Zuleta MD Primary Care Provider [phone] Encounter Details Date Type Department Care Team (Late st Contact Info) Description 08/16/2016 Orders Only SE[facility] Gastro [facility] [address] [address] Uri Tang MD Social History Tobacco Use Types Packs/Day Years Used Date Smoking Tobacco: Every Day Cigarettes Smokeless Tobacco: Never Alcohol Use Standard Drinks/Week Comments No 0 (1 standard drink = 0.6 oz pur e alcohol) Sexually Active Control Partners Comments Yes Female Sex and Gender Information Value Date Recorded Sex Assigned at Not on file Legal Sex Male 9:24 PM EDT Gender Identity Not on file Sexual Orientation Not on file documented as of this encounter Plan of Treatment Not on file documented as of this encounter Procedures Procedure Name Priority Date/Time Associated Diagnosis Comments [facility] EGD-COLONOSCOPY Routine 08/16/2016 12:40 PM EDT documented in this encounter Results * [facility] EGD-COLONOSCOPY (08/16/2016 12:40 PM EDT) 08/16/2016 12:4 0 PM EDT Impressions [facility] - 08/16/2016 1:23 PM EDT Plan: Colonoscopy, Screening in 10 years. It will NOT be their first colonoscopy. This section is an excerpt of the full report. us Uri Tang MD GI PROCEDURE ORDERABLES Final R esult [facility] [address] [place] [address] documented in this encounter Visit Diagnoses Not on filedocumented in this encounter Additional Health Concerns Infection Onset Date Last Indicated Resolved Time R/O COVID-19 09/21/2022 09/21/2022 09/21/2022 2:39 PM EDT R/O COVID-19 02/17/2023 02/17/2023 02/17/2023 3:22 PM EDT R/O COVID-19 06/05/2023 06/05/2023 06/05/2023 2:39 PM EST documented as of this encounter Care Teams Debug Technician Relationship Specialty Start Date End Date Terrance Zuleta MD [facility] [address] [place] [address] PCP - General Family Medicine 08/21/14 documented as of this encounter
--- OUTSIDE RECORDS SUMMARY | 2024-12-23 12:20 | XMS_ITS | Encounter Summary ---
Author Organization [facility] Address [address] [place] [address] Care Team Providers Care Chief Ultrasound Technologist Name Role Phone Unknown, Attending Provider Primary [...] release of HIV test results or diagnoses. [id number] Encounter Details Date Type Department Care Team (Late st Contact Info) Description 12/29/2021 Ophth Exam [facility] at [address] [place] [address] Santos Claire MD Social History [...] documented as of this encounter Care Teams Chief Ultrasound Technologist Relationship Specialty Start Date End Date Unknown, Attending Provider PCP - General 12/29/21 documented as of this encounter
== END 2024-12-20 23:59 ==
LOC: LAB.DROPOF 12-23 12:13
PROVIDERS: PCP Nurse Practitioner Family; Visit Provider Nurse Practitioner Family
DX: R31.9 Hematuria, unspecified (principal); M54.50 Low back pain, unspecified
CPT/HCPCS: 87086; 87088; 87186